=== PATIENT | female | born 2000 | race African-American/Black ===

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

== ENCOUNTER → 2023-06-23 | Outpatient (CLI) | payer MEDICAID, SELFPAY ==
--- OUTSIDE RECORDS SUMMARY | 2023-06-23 07:55 | XMS RPT_ITS | CCD ---
Author Name Unknown Address [address] [place] [address] Organization [facility] Care Team Providers Care Associate Director Of Biostatistics Name Role Phone LAMAR AYERS Unavailable Unavailable VLADIMIR HUMPHREY Unavailable Unavailable Vladimir Humphrey MD Primary Care Provider Vladimir Humphrey MD Primary Care Provider [phone] Vladimir Humphrey MD Primary Care Provider Vladimir Humphrey MD Primary Care Provider VLADIMIR HMUPHREY Primary Care Unavailable NALLELY CASTILLO Attending Unavailable VLADIMIR HUMPHREY Primary Care Unavailable NALLELY CASTILLO Attending Unavailable VLADIMIR HUMPHREY Primary Care Unavailable VERONICA MILAN Attending Unavailable VLADIMIR HUMPHREY Primary Care Unavailable VERONICA MILAN Attending Unavailable VLADIMIR HUMPHREY Primary Care Unavailable VLADIMIR HUMPHREY Attending Unavailable VLADIMIR HUMPHREY Primary Care Unavailable ONESIMO SAUNDERS Attending Unavailab VLADIMIR Lopez Primary Care Unavailable VLADIMIR HUMPHREY Primary Care Unavailable ONESIMO SAUNDERS Attending UnavailVLADIMIR aSnchez Primary Care Unavailable NALLELY CASTILLO Attending Unavailable Allergies Allergy Classification Reported Allergen(s) Allergy Type Date of Onset Reaction(s) Facility (20 sources) Banana Extract; Translations: [BANANA] Drug Allergy [address] [facility] Work Phone: (20 sources) celery allergenic extract; Translations: [CELERY] Drug Allergy [address] [facility] Work Phone: (20 sources) Grass pollen; Translations: [GRASS POLLEN] Drug Allergy [address] [facility] Work Phone: (20 sources) Seasonal allergy; Translations: [SEASONAL ALLERGIES] Allergy to substance [address] [facility] Work Phone: (20 sources) Tree and shrub pollen; Translations: [TREE AND SHRUB POLLEN] Drug Allergy [address] [facility] Work Phone: (20 sources) Kiwi; Translations: [KIWI] Drug Intolerance 9 Other: See Comments [facility] Work Phone: (14 sources) Latex; Translations: [LATEX] Drug Allergy 3 Other: See Comments [facility] (9 sources) Sertraline; Translations: [SERTRALINE] Drug Allergy 3 Other: See Comments [facility] Work Phone: Medications Current Medications Medication Drug Class(es) Dates Sig (Normalized) Sig (Original) etonogestrel 68 mg drug implant (20 sources) Progestin Start: 04-19-2021 End: 04-18-2024 etonogestrel (NEXPLANON) subdermal implant 68 mg Indications: Encounter for removal and reinsertion of Nexplanon 1 Each by SUBDERMAL route as directed. 1 Each 0 04/19/2021 04/18/2024 Active Completed/Discontinued Medications Medication Drug Class(es) Dates Sig (Normalized) Sig (Original) azelastine hydrochloride 0.137 mg/actuat metered dose nasal spray (1 source) Histamine-1 Receptor Antagonist Start: 04-20-2020 End: 08-09-2021 take 2 spray(s) nasal route twice daily as needed azelastine (ASTELIN) 0.1% nasal spray Use 2 Sprays in each nostril twice daily as needed. 1 Bottle 11 04/20/2020 08/09/2021 Discontinued Problems Active Problems Problem Classification Problem Date Documented Date Episodic/Chronic Administrative/social admission (1 source) Homeless; Translations: [Homelessness] 01-02-2023 Episodic Anxiety disorders (20 sources) Generalized anxiety disorder; Translations: [Generalized anxiety disorder] Onset: 09-15-2018 Chronic Digestive congenital anomalies (2 sources) Tongue tie; Translations: [Ankyloglossia] Chronic Immunizations and screening for infectious disease (6 sources) Viral screening status; Translations: [Encounter for screening for other viral diseases] Episodic Inflammatory diseases of female pelvic organs (2 sources) Vaginitis; Translations: [Acute vaginitis] Episodic Malaise and fatigue (2 sources) Fatigue; Translations: [Other fatigue] Episodic Mood disorders (20 sources) Mild major depression, single episode; Translations: [Major depressive disorder, single episode, mild] Onset: 09-15-2018 Chronic Mycoses (1 source) Tinea pedis; Translations: [Tinea pedis] 01-23-2023 Episodic Other connective tissue disease (1 source) H/O: arthritis; Translations: [Personal history of other diseases of the musculoskeletal system and connective tissue] Episodic Other connective tissue disease (1 source) Pain in left lower limb; Translations: [Pain in left leg] Episodic Other female genital disorders (1 source) Pruritus of vagina; Translations: [Other specified noninflammatory disorders of vagina] Episodic Other inflammatory condition of skin (1 source) Pruritus of genital organs; Translations: [Pruritus vulvae] Episodic Other liver diseases (2 sources) Alkaline phosphatase raised; Translations: [Abnormal levels of other serum enzymes] Episodic Other non-traumatic joint disorders (1 source) Pain in right knee; Translations: [Pain in joint, lower leg] Episodic Other nutritional; endocrine; and metabolic disorders (1 source) Weight gain; Translations: [Abnormal weight gain] Episodic Other screening for suspected conditions (not mental disorders or infectious disease) (2 sources) Patient encounter status; Translations: [Encounter for screening for lipoid disorders] Episodic Other skin disorders (1 source) Acne vulgaris; Translations: [Acne vulgaris] Episodic Other upper respiratory disease (20 sources) Seasonal allergy; Translations: [Other seasonal allergic rhinitis] Onset: 04-03-2016 Chronic Other upper respiratory disease (20 sources) Allergic rhinitis due to pollen; Translations: [Allergic rhinitis due to pollen] Onset: 03-18-2019 Chronic Other upper respiratory disease (20 sources) Allergic rhinitis due to house dust mite; Translations: [Other allergic rhinitis] Onset: 03-18-2019 Chronic Other upper respiratory infections (1 source) Sore throat symptom; Translations: [Acute pharyngitis, unspecified] Episodic Past or Other Problems Problem Classification Problem Date Documented Da te Episodic/Chronic Allergic reactions (20 sources) Pollen-food allergy; Translations: [Other adverse food reactions, not elsewhere classified, initial encounter] Onset: 03-18-2019 06-28-2020 Episodic Other connective tissue disease (1 source) Pain in left leg; Translations: [Pain of left lower extremity] Onset: 08-21-2022 Episodic Other skin disorders (1 source) Acne vulgaris; Translations: [Acne vulgaris] Onset: 09-16-2022 Episodic Skin and subcutaneous tissue infections (2 sources) Furuncle; Translations: [Furuncle, unspecified] Onset: 08-21-2022 Episodic Urinary tract infections (20 sources) Recurrent urinary tract infection; Translations: [Urinary tract infection, site not specified] Onset: 08-09-2021 Episodic Viral infection (20 sources) Disease caused by 2019-nCoV; Translations: [COVID-19] Onset: 05-27-2021 05-27-2021 Episodic Results Test Name Value Interpretation Reference Range Facil ity Vital Signs Date Time Vital Sign Value Performing Clinician Faci lity 03-12-2023 16:48-0400 Body height 160 cm Onesimo Saunders MD Work Phone: [facility] 03-12-2023 16:48-0400 Body weight 83.46 kg Onesimo Saunders MD Work Phone: [facility] 03-12-2023 16:48-0400 Diastolic blood pressure 80 mm[Hg] Onesimo Saunders MD Work Phone: [facility] 03-12-2023 16:48-0400 Heart rate 80 /min Onesimo Saunders MD Work Phone: [facility] 03-12-2023 16:48-0400 Respiratory rate 16 /min Onesimo Saunders MD Work Phone: [facility] 03-12-2023 16:48-0400 Systolic blood pressure 120 mm[Hg] Onesimo Saunders MD Work Phone: [facility] 01-23-2023 16:40-0400 Body temperature 98.49 [degF] Afia Wiseman PA-C Work Phone: [facility] 01-23-2023 16:40-0400 Body weight 83.64 kg Afia Athy PA-C Work Phone: [facility] 01-23-2023 16:40-0400 Diastolic blood pressure 78 mm[Hg] Afia Athy PA-C Work Phone: [facility] 01-23-2023 16:40-0400 Heart rate 80 /min Afia Athy PA-C Work Phone: [facility] 01-23-2023 16:40-0400 Respiratory rate 20 /min Faia Athy PA-C Work Phone: [facility] 01-23-2023 16:40-0400 SaO2% (BldA) [Mass fraction] 100 % Afia Athy PA-C Work Phone: [facility] 01-23-2023 16:40-0400 Systolic blood pressure 100 mm[Hg] Afia Athy PA-C Work Phone: [facility] 01-02-2023 16:42-0400 Body weight 86.46 kg Onesimo Saunders MD Work Phone: [facility] 01-02-2023 16:42-0400 Diastolic blood pressure 68 mm[Hg] Onesimo Saunders MD Work Phone: [facility] 01-02-2023 16:42-0400 Heart rate 113 /min Onesimo Saunders MD Work Phone: [facility] 01-02-2023 16:42-0400 Respiratory rate 16 /min Onesimo Saunders MD Work Phone: [facility] 01-02-2023 16:42-0400 SaO2% (BldA) [Mass fraction] 96 % Onesimo Saunders MD Work Phone: [facility] 01-02-2023 16:42-0400 Systolic blood pressure 118 mm[Hg] Onesimo Saunders MD Work Phone: [facility] 09-16-2022 18:21-0400 Diastolic blood pressure 82 mm[Hg] Nallely Castillo APRN.CNP Work Phone: [facility] 09-16-2022 18:21-0400 Heart rate 89 /min Nallely Haagen CIRCUS SUPERVISOR.SUPERVISOR KNITTING Work Phone: [facility] 09-16-2022 18:21-0400 Respiratory rate 18 /min Nallely Haagen CIRCUS SUPERVISOR.SUPERVISOR [employer]ITTING Work Phone: [facility] 09-16-2022 18:21-0400 SaO2% (BldA) [Mass fraction] 99 % Nallely Haagen CIRCUS SUPERVISOR.SUPERVISOR [employer]ITTING Work Phone: [facility] 09-16-2022 18:21-0400 Systolic blood pressure 118 mm[Hg] Nallely Haagen CIRCUS SUPERVISOR.SUPERVISOR [employer]ITTING Work Phone: [facility] 08-21-2022 15:48-0400 Body height 161.3 cm Nallely Haagen CIRCUS SUPERVISOR.SUPERVISOR [employer]ITTING Work Phone: [facility] 08-21-2022 15:48-0400 Body weight 87.09 kg Nallely Haagen CIRCUS SUPERVISOR.SUPERVISOR [employer]ITTING Work Phone: [facility] 08-21-2022 15:48-0400 Diastolic blood pressure 82 mm[Hg] Nallely Haagen CIRCUS SUPERVISOR.SUPERVISOR [employer]ITTING Work Phone: [facility] 08-21-2022 15:48-0400 Heart rate 97 /min Nallely Haagen CIRCUS SUPERVISOR.SUPERVISOR [employer]ITTING Work Phone: [facility] 08-21-2022 15:48-0400 Respiratory rate 18 /min Nallely Haagen CIRCUS SUPERVISOR.SUPERVISOR [employer]ITTING Work Phone: [facility] 08-21-2022 15:48-0400 SaO2% (BldA) [Mass fraction] 97 % Nallely Haagen CIRCUS SUPERVISOR.SUPERVISOR KNITTING Work Phone: [facility] 08-21-2022 15:48-0400 Systolic blood pressure 104 mm[Hg] Nallely Haagen CIRCUS SUPERVISOR.SUPERVISOR [employer]ITTING Work Phone: [facility] 06-24-2022 17:23-0500 Diastolic blood pressure 82 mm[Hg] Nallely Haagen CIRCUS SUPERVISOR.SUPERVISOR [employer]NITTING Work Phone: [facility] 06-24-2022 17:23-0500 Heart rate 109 /min Nallely Castillo CIRCUS SUPERVISOR.SUPERVISOR [employer]ITTING Work Phone: [facility] 06-24-2022 17:23-0500 Respiratory rate 18 /min Nallely Castillo APRN.SUPERVISOR [employer]ITTING Work Phone: [facility] 06-24-2022 17:23-0500 SaO2% (BldA) [Mass fraction] 98 % Nallely Csatillo CIRCUS SUPERVISOR.SUPERVISOR [employer]ITTING Work Phone: [facility] 06-24-2022 17:23-0500 Systolic blood pressure 122 mm[Hg] Nallely Castillo CIRCUS SUPERVISOR.SUPERVISOR [employer]NITTING Work Phone: [facility] 06-06-2022 16:00-0500 Body height 161.3 cm Veronica Milan APRN.SUPERVISOR [employer]ITTING Work Phone: [facility] 06-06-2022 16:00-0500 Body weight 86.82 kg Veronica Milan APRN.SUPERVISOR [employer]ITTING Work Phone: [facility] 06-06-2022 16:00-0500 Diastolic blood pressure 72 mm[Hg] Veronica Milan APRN.SUPERVISOR [employer]ITTING Work Phone: [facility] 06-06-2022 16:00-0500 Systolic blood pressure 122 mm[Hg] Veronica Milan APRN.SUPERVISOR [employer]NITTING Work Phone: [facility] 06-05-2022 15:06-0500 Body weight 87.54 kg Veronica Milan APRN.SUPERVISOR [employer]ITTING Work Phone: [facility] 06-05-2022 15:06-0500 Diastolic blood pressure 74 mm[Hg] Veronica Milan APRN.SUPERVISOR [employer]ITTING Work Phone: [facility] 06-05-2022 15:06-0500 Systolic blood pressure 118 mm[Hg] Veronica Milan APRN.SUPERVISOR [employer]ITTING Work Phone: [facility] 03-12-2022 15:12-0400 Body weight 89.36 kg Nallely Castillo APRN.SUPERVISOR [employer]ITTING Work Phone: [facility] 03-12-2022 15:12-0400 Diastolic blood pressure 76 mm[Hg] Nallely Haagen CIRCUS SUPERVISOR.SUPERVISOR [employer]NITTING Work Phone: [facility] 03-12-2022 15:12-0400 Heart rate 92 /min Nallely Haagen CIRCUS SUPERVISOR.SUPERVISOR [employer]ITTING Work Phone: [facility] 03-12-2022 15:12-0400 Respiratory rate 16 /min Nallely Haagen CIRCUS SUPERVISOR.SUPERVISOR [employer]NITTING Work Phone: [facility] 03-12-2022 15:12-0400 Systolic blood pressure 118 mm[Hg] Nallely Haagen CIRCUS SUPERVISOR.SUPERVISOR KNITTING Work Phone: [facility] 11-08-2021 12:38-0400 Body mass index (BMI) [Percentile] Per age and sex 97.63 % Gunjan Praisler-Wood CIRCUS SUPERVISOR.SUPERVISOR KNITTING Work Phone: [facility] 11-08-2021 12:38-0400 Body temperature 98.01 [degF] Gunjan Praisler-Wood CIRCUS SUPERVISOR.SUPERVISOR [employer]NITTING Work Phone: [facility] 11-08-2021 12:38-0400 Body weight 89.54 kg Gunjan Praisler-Wood CIRCUS SUPERVISOR.SUPERVISOR [employer]NITTING Work Phone: [facility] 11-08-2021 12:38-0400 Diastolic blood pressure 64 mm[Hg] Gunjan Praisler-Wood CIRCUS SUPERVISOR.SUPERVISOR KNITTING Work Phone: [facility] 11-08-2021 12:38-0400 Heart rate 101 /min Gunjan Praisler-Wood CIRCUS SUPERVISOR.SUPERVISOR KNITTING Work Phone: [facility] 11-08-2021 12:38-0400 Respiratory rate 16 /min Gunjan Praisler-Wood CIRCUS SUPERVISOR.SUPERVISOR [employer]ITTING Work Phone: [facility] 11-08-2021 12:38-0400 SaO2% (BldA) [Mass fraction] 98 % Gunjan Praisler-Wood CIRCUS SUPERVISOR.SUPERVISOR KNITTING Work Phone: [facility] 11-08-2021 12:38-0400 Systolic blood pressure 122 mm[Hg] Gunjan Praisler-Wood CIRCUS SUPERVISOR.SUPERVISOR KNITTING Work Phone: [facility] 09-12-2021 12:56-0400 Body mass index (BMI) [Percentile] Per age and sex 97.78 % Veronica Milan APRN.SUPERVISOR KNITTING Work Phone: [facility] 09-12-2021 12:56-0400 Body weight 90.27 kg Veronica Milan APRN.SUPERVISOR KNITTING Work Phone: [facility] 09-12-2021 12:56-0400 Diastolic blood pressure 64 mm[Hg] Veronica Milan APRN.SUPERVISOR KNITTING Work Phone: [facility] 09-12-2021 12:56-0400 Systolic blood pressure 110 mm[Hg] Veronica Milan APRN.SUPERVISOR KNITTING Work Phone: [facility] 08-09-2021 12:12-0400 Body height 157.5 cm Nevaeh Hennessy PA-C Work Phone: [facility] 08-09-2021 12:12-0400 Body mass index (BMI) [Percentile] Per age and sex 97.76 % Nevaeh Hennessy PA-C Work Phone: [facility] 08-09-2021 12:12-0400 Body temperature 97.9 [degF] Nevaeh Hennessy PA-C Work Phone: [facility] 08-09-2021 12:12-0400 Body weight 89.81 kg Nevaeh Hennessy PA-C Work Phone: [facility] 08-09-2021 12:12-0400 Diastolic blood pressure 72 mm[Hg] Nevaeh Hennessy PA-C Work Phone: [facility] 08-09-2021 12:12-0400 Heart rate 96 /min Nevaeh Hennessy PA-C Work Phone: [facility] 08-09-2021 12:12-0400 Respiratory rate 18 /min Nevaeh Hennessy PA-C Work Phone: [facility] 03-24-2022 12:12-0400 Systolic blood pressure 106 mm[Hg] Nevaeh Hennessy PA-C Work Phone: [facility] Encounters Encounter Date Encounter Type Care Provider Facility Start: 06-19-2023 Refill Nallely Castillo APRN.SUPERVISOR KNITTING Work Phone: [facility] Procedures Date Procedure Procedure Detail Performing Clinician Start: 08-21-2022 Urnls dip stick/tabl et rgnt auto w/o microscopy Nallely Castillo CIRCUS SUPERVISOR.SUPERVISOR KNITTING Work Phone: Start: 06-05-2022 Iadna trichomonas vaginalis amplified probe tech Veronica Milan CIRCUS SUPERVISOR.SUPERVISOR KNITTING Work Phone: Start: 03-12-2022 INFLUENZA VACCINE QUADRIVALENT 6 MO - 64 YRS IM Nallely Castillo CIRCUS SUPERVISOR.SUPERVISOR KNITTING Work Phone: Plan of Treatment Date Care Activity Detail Author Start: 12-12-2024 Urine microalbumin profile [facility] Start: 03-12-2024 Covid-19 Vaccine ( season) Covid-19 Vaccine ( season) [facility] Immunizations Immunization Date Immunization Notes Care Provider Fa rom 03-12-2022 influenza, injectabl e, quadrivalent, contains preservative Nallely Castillo APRN.SUPERVISOR [employer]ITTING Work Phone: [facility] 03-12-2022 influenza virus vaccine, unspecified formulation Onesimo Saunders MD Work Phone: [facility] 02-24-2022 COVID-19 booster vaccine, age 12+ yr, bivalent (PFIZER-BIONTECH) Nallely Castillo APRN.SUPERVISOR KNITTING Work Phone: [facility] 04-20-2020 influenza, injectabl e, quadrivalent, contains preservative Nevaeh Hennessy PA-C Work Phone: [facility] 01-12-2020 meningococcal polysaccharide (groups A, C, Y and W-135) diphtheria toxoid conjugate vaccine (MCV4P) Nevaeh Hennessy PA-C Work Phone: [facility] 02-18-2019 influenza, injectabl e, quadrivalent, contains preservative Nevaeh Hennessy PA-C Work Phone: [facility] 07-02-2018 meningococcal polysaccharide (groups A, C, Y and W-135) diphtheria toxoid conjugate vaccine (MCV4P) Nevaeh Hennessy PA-C Work Phone: [facility] Work Phone: 01-25-2016 hepatitis A vaccine, pediatric/adolescent dosage, 2 dose schedule Nevaeh Hennessy PA-C Work Phone: [facility] Work Phone: 01-25-2016 Human Papillomavirus 9-valent vaccine Nevaeh Hennessy PA-C Work Phone: [facility] Work Phone: 06-19-2015 hepatitis A vaccine, pediatric/adolescent dosage, 2 dose schedule Nevaeh Hennessy PA-C Work Phone: [facility] 06-19-2015 human papilloma viru s vaccine, quadrivalent Nevaeh Hennessy PA-C Work Phone: [facility] 03-20-2015 human papilloma viru s vaccine, bivalent Nevaeh Hennessy PA-C Work Phone: [facility] 03-20-2015 human papilloma viru s vaccine, quadrivalent Nevaeh Hennessy PA-C Work Phone: [facility] 12-12-2014 hepatitis A vaccine, pediatric/adolescent dosage, 2 dose schedule Nevaeh Hennessy PA-C Work Phone: [facility] 12-12-2014 human papilloma viru s vaccine, quadrivalent Nevaeh Hennessy PA-C Work Phone: [facility] 12-12-2014 meningococcal polysaccharide (groups A, C, Y and W-135) diphtheria toxoid conjugate vaccine (MCV4P) Nevaeh Hennessy PA-C Work Phone: [facility] 12-12-2014 Meningococcal, MCV4, unspecified conjugate formulation(groups A, C, Y and W-135) Nevaeh Hennessy PA-C Work Phone: [facility] 12-12-2014 tetanus toxoid, redu caitlin diphtheria toxoid, and acellular pertussis vaccine, adsorbed Nevaeh Hennessy PA-C Work Phone: [facility] 01-27-2008 diphtheria, tetanus toxoids and acellular pertussis vaccine, 5 pertussis antigens Nevaeh Hennessy PA-C Work Phone: [facility] 01-27-2008 diphtheria, tetanus toxoids and acellular pertussis vaccine, unspecified formulation Nevaeh Hennessy PA-C Work Phone: [facility] 01-27-2008 measles, mumps and rubella virus vaccine Nevaeh Hennessy PA-C Work Phone: [facility] 01-27-2008 poliovirus vaccine, inactivated Nevaehjohnson Hennessy PA-C Work Phone: [facility] 01-27-2008 varicella virus vaccine Shaila nne Gerhard PA-C Work Phone: [facility] 08-08-2004 pneumococcal Conjuga te, unspecified formulation Nevaehjohnson Hennessy PA-C Work Phone: [facility] 10-07-2003 diphtheria, tetanus toxoids and acellular pertussis vaccine, 5 pertussis antigens Nevaehjohnson Hennessy PA-C Work Phone: [facility] 10-07-2003 diphtheria, tetanus toxoids and acellular pertussis vaccine, unspecified formulation Nevaeh Hennessy PA-C Work Phone: [facility] 10-07-2003 haemophilus influenz ae type b vaccine, HbOC conjugate Nevaehkoffi Hennessy PA-C Work Phone: [facility] 07-20-2003 measles, mumps and rubella virus vaccine Nevaeh Gerhard PA-C Work Phone: [facility] 07-20-2003 varicella virus vaccine Shaila nne Hennessy PA-C Work Phone: [facility] 03-07-2003 diphtheria, tetanus toxoids and acellular pertussis vaccine, 5 pertussis antigens Nevaeh Hennessy PA-C Work Phone: [facility] 03-07-2003 diphtheria, tetanus toxoids and acellular pertussis vaccine, unspecified formulation Nevaeh Hennessy PA-C Work Phone: [facility] 03-07-2003 haemophilus influenz ae type b vaccine, conjugate unspecified formulation Nevaeh Hennessy PA-C Work Phone: [facility] 03-07-2003 haemophilus influenz ae type b vaccine, HbOC conjugate Nevaeh Hennessy PA-C Work Phone: [facility] 03-07-2003 pneumococcal conjuga te vaccine, 7 valent Nevaeh Hennessy PA-C Work Phone: [facility] 03-07-2003 pneumococcal Conjuga te, unspecified formulation Nevaeh Hennessy PA-C Work Phone: [facility] 03-07-2003 poliovirus vaccine, inactivated Nevaeh Hennessy PA-C Work Phone: [facility] 01-05-2003 diphtheria, tetanus toxoids and acellular pertussis vaccine, 5 pertussis antigens Nevaeh Hennessy PA-C Work Phone: [facility] 01-05-2003 diphtheria, tetanus toxoids and acellular pertussis vaccine, unspecified formulation Nevaeh Hennessy PA-C Work Phone: [facility] 01-05-2003 haemophilus influenz ae type b conjugate and Hepatitis B vaccine Nevaeh Hennessy PA-C Work Phone: [facility] 01-05-2003 haemophilus influenz ae type b vaccine, HbOC conjugate Nevaeh Hennessy PA-C Work Phone: [facility] 01-05-2003 hepatitis B vaccine, pediatric or pediatric/adolescent dosage Nevaeh Hennessy PA-C Work Phone: [facility] 01-05-2003 pneumococcal conjuga te vaccine, 7 valent Nevaeh Hennessy PA-C Work Phone: [facility] 01-05-2003 pneumococcal Conjuga te, unspecified formulation Nevaeh Hennessy PA-C Work Phone: [facility] 01-05-2003 poliovirus vaccine, inactivated Nevaeh Hennessy PA-C Work Phone: [facility] 2002 diphtheria, tetanus toxoids and acellular pertussis vaccine, 5 pertussis antigens Nevaeh Gerhard LEGER-C Work Phone: [facility] 2002 diphtheria, tetanus toxoids and acellular pertussis vaccine, unspecified formulation Nevaeh Hennessy PA-C Work Phone: [facility] 2002 haemophilus influenz ae type b conjugate and Hepatitis B vaccine Nevaeh Hennessy PA-C Work Phone: [facility] 2002 haemophilus influenz ae type b vaccine, HbOC conjugate Nevaeh Gerhard LEGER-C Work Phone: [facility] 2002 hepatitis B vaccine, pediatric or pediatric/adolescent dosage Nevaeh Gerhard LEGER-C Work Phone: [facility] 2002 pneumococcal conjuga te vaccine, 7 valent Nevaehjohnson LEGER-C Work Phone: [facility] 2002 pneumococcal Conjuga te, unspecified formulation Nevaehjohnson LEGER-C Work Phone: [facility] 2002 poliovirus vaccine, inactivated Nevaehjohnson LEGER-C Work Phone: [facility] 2002 hepatitis B immune globulin Nevaehjohnson LEGER-C Work Phone: [facility] 2002 hepatitis B vaccine, pediatric or pediatric/adolescent dosage Nevaeh Hennessy PA-C Work Phone: [facility] Payers Date Payer Category Payer Medicaid [employer] [id number] 2003-Present [phone] [place] [id number] Medicaid [id number] 2003 Medicaid [id number] 2003 Unknown [id number] Social History Date Type Detail Facility Start: 06-20-2017 End: 03-12-2022 Tobacco smoking status NHIS Never smoked tobacco [facility] Work Phone: Start: 08-09-2021 End: 06-02-2023 Alcohol intake Current non-drinker of alcohol (finding) [facility] Start: 2002 Sex Assigned At Female [facility] Start: 07-30-2021 End: 03-12-2022 Exposure to SARS-CoV-2 (event) Not sure [facility] [facility] Start: 06-20-2017 End: 03-12-2022 Tobacco use and exposure Smokeless tobacco non-user [facility] Start: 03-12-2022 End: 06-24-2022 History SDOH Alcohol Frequency [address] [facility] Start: 03-12-2022 End: 06-24-2022 History SDOH Alcohol Std Drinks [address] [facility] Start: 03-12-2022 End: 06-24-2022 History SDOH Social Connections Phone [address] [facility] Start: 03-12-2022 End: 06-24-2022 History SDOH Social Connections Get Together [address] [facility] Start: 03-12-2022 End: 06-24-2022 History SDOH Social Connections Living [address] [facility] Start: 03-12-2022 End: 06-24-2022 History SDOH Stress [address] [facility] Start: 03-12-2022 History SDOH Financial [address] [facility] Start: 03-12-2022 History SDOH Food Scarcity [address] [facility] Start: 06-24-2022 End: 04-21-2023 History of Social function [facility] Start: 06-24-2022 End: 04-21-2023 Social connection and isolation panel [facility] Do you belong to any clubs or organizations such as confucianist groups, unions, fraternal or athletic groups, or school groups? No [facility] Are you now , , , , never or living with a partner? Never [facility] How often to you hav e a drink containing alcohol? Never [facility] How many standard dr inks containing alcohol do you have on a typical day? Patient does not drink [facility] How hard is it for y ou to pay for the very basics like food, housing, medical care, and heating Hard [facility] Do you feel stress - tense, restless, nervous, or anxious, or unable to sleep at night because your mind is troubled all the time - these days [OSQ] Rather much [facility] (I/We) worried wheth er (my/our) food would run out before (I/we) got money to buy more. Sometimes true [facility] In the past 12 month s, was there a time when you were not able to pay the mortgage or rent on time? Yes [facility] Start: 08-09-2021 Gender identity Identifies as female gender (finding) [facility] Start: 08-09-2021 Sexual orientation Bisexual (finding ) [facility] Clinical Notes 08-09-2021 to 06-19-2023 Telephone Encounter - Gail Durham LPN - 06/19/2023 2:32 PM ESTTelephone Encounter - Vladimir Humphrey MD - 06/19/2023 2:17 PM Onesimo Iraheta MD - 03/12/2023 4:54 PM EDT Note Date & Type Note Facility 06-19-2023 Miscellaneous Notes Pt notified of same. Pt will come into [facility] to be seen. Gail Durham LPN Advise patient she will need seen. Patient has been identified by name and date of : Yes, Patient phones for refill(s): Requested Prescriptions Pending Prescriptions Disp Refills cephALEXin (KEFLEX) 250 mg capsule Sig: Take 1 capsule by mouth as needed. After intercourse Date of last office visit in primary care: 06/02/2023 Date of next office visit in primary care: 07/17/2023 Please advise. Thank you. Tomasa Denis LPN. documented in this encounter [facility] 06-02-2023 Note HNO ID: [id number] Author: VLADIMIR HUMPHREY MD Service: ? Author Type: Physician Type: Progress Notes Filed: 06/02/2023 16:47 Note Text: Chief Complaint Patient presents with: Medication Follow-up HPI Mary Verduzco is a 22 year old female who presents here today for medication follow up. Patient was started on Prozac. Patient indicated that she didn't noticed much different. She says she did notice more benefit than with the Zoloft. Patient has not been on the medication for over month because she had not refills and couldn't get a refill until she was seen. Patient did have a fall 2 days ago. She was walking her dog and the dog saw a cat and ran after; she fell back and hit her head on concrete. She did have her jacket molina on the cushion the fall. Patient didn't pass out ; but the spot on the back of her head is tender to touch. Headache off/on and no changes in her vision. No nausea or vomiting. No mood changes or confusion. No headache today. Office visit - Dr. Saunders - Past Evaluated at last OV for uncontrolled anxiety and depression. Patient switched from Zoloft to Prozac due to fatigue at OV in December. States that she just started the Prozac 1 week ago and has continued on the Zoloft 100 mg daily. Tolerating without side effects. Interested in seeing counseling. Referred at last OV and behavioral health sent resources via [facility]. Feels like her anxiety and depression symptoms have improved since she has found a duplex here in [place] and is no longer worried about being homeless. Living with her mother. Previous PHQ-9: 23 CAMRON 7: 18. Patient completed questionnaires prior to OV with PHQ-9: 13 and CAMRON 7: 11. 03/05/2023 1542 Last Filed Value CAMRON-7 - over the last 2 weeks... Feeling nervous, anxious, or on edge More than half the daysFeeling nervous, anxious, or on edge. More than half the days. Patient-Reported. Taken on 03/05/23 1542 More than half the daysFeeling nervous, anxious, or on edge. More than half the days. Patient-Reported. Last Filed Value Not being able to stop or control worrying Not at allNot being able to stop or control worrying. Not at all. Patient-Reported. Taken on 03/05/23 154 Not at allNot being able to stop or control worrying. Not at all. Patient-Reported. Last Filed Value Worrying too much about different things Nearly EverydayWorrying too much about different things. Nearly Everyday. Patient-Reported. Taken on 03/05/23 154 Nearly EverydayWorrying too much about different things. Nearly Everyday. Patient-Reported. Last Filed Value Trouble relaxing Nearly EverydayTrouble relaxing. Nearly Everyday. Patient-Reported. Taken on 03/05/23 154 Nearly EverydayTrouble relaxing. Nearly Everyday. Patient-Reported. Last Filed Value Being so restless that it is hard to sit still Several daysBeing so restless that it is hard to sit still. Several days. Patient-Reported. Taken on 03/05/23 154 Several daysBeing so restless that it is hard to sit still. Several days. Patient-Reported. Last Filed Value Becoming easily annoyed or irritable Several daysBecoming easily annoyed or irritable. Several days. Patient-Reported. Taken on 03/05/23 154 Several daysBecoming easily annoyed or irritable. Several days. Patient-Reported. Last Filed Value Feeling afraid, as if something awful might happen Several daysFeeling afraid, as if something awful might happen. Several days. Patient-Reported. Taken on 03/05/23 1542 Several daysFeeling afraid, as if something awful might happen. Several days. Patient-Reported. Last Filed Value How difficult to do work, care for home, get along with people Somewhat difficultHow difficult to do work, care for home, get along with people. Somewhat difficult. Patient-Reported. Taken on 03/05/23 154 Somewhat difficultHow difficult to do work, care for home, get along with people. Somewhat difficult. Patient-Reported. Last Filed Value CAMRON-2 Total Score 2 2 CAMRON-7 Total Score 11 11 CAMRON-7 Score 11 11 medical history, appointments, medications, allergies reviewed. Previous Medical History PAST MEDICAL HISTORY Diagnosis Date Allergic rhinitis due to dust mite 03/18/2019 Bilateral bunions 11/01/2016 S/p bunionectomy [place] COVID-19 virus infection 05/27/202105/2021 Depression, major, single episode, mild (HCC) 09/15/2018 CAMRON (generalized anxiety disorder) 09/15/2018 Nexplanon insertion 04/19/2021 Pollen-food allergy 03/18/2019 Seasonal allergic rhinitis due to pollen 03/18/2019 Seasonal allergies Previous Surgical History PAST SURGICAL HISTORY Procedure Laterality Date CORRECTION OF BUNION Bilateral 11/02 left foot 05/04 right foot Family History FAMILY HISTORY Problem Relation Age of Onset Diabetes Mother Kidney Disease Mother Arthritis Mother Neuropathy Mother No Known Problems Father None Other Prostate Cancer No Family History Colon Cancer No Family History Keena (more content not included)... [facility] 03-12-2023 Note HNO ID: [id number] Author: Onesimo Saunders MD Service: ? Author Type: Physician Type: Progress Notes Filed: 03/13/2023 10:59 AM Note Text: Chief Complaint Patient presents with: Follow up from starting Prozac HPI Mary Verduzco is a 22 year old female who presents here today for Above Complaints.. Evaluated at last OV for uncontrolled anxiety and depression. Patient switched from Zoloft to Prozac due to fatigue at OV in December. States that she just started the Prozac 1 week ago and has continued on the Zoloft 100 mg daily. Tolerating without side effects. Interested in seeing counseling. Referred at last OV and behavioral health sent resources via [employer]. Feels like her anxiety and depression symptoms have improved since she has found a duplex here in [place] and is no longer worried about being homeless. Living with her mother. Previous PHQ-9: 23 CAMRON 7: 18. Patient completed questionnaires prior to OV with PHQ-9: 13 and CAMRON 7: 11. 03/05/2023 1542 Last Filed Value CAMRON-7 - over the last 2 weeks... Feeling nervous, anxious, or on edge More than half the daysFeeling nervous, anxious, or on edge. More than half the days. Patient-Reported. Taken on 03/05/23 1542 More than half the daysFeeling nervous, anxious, or on edge. More than half the days. Patient-Reported. Last Filed Value Not being able to stop or control worrying Not at allNot being able to stop or control worrying. Not at all. Patient-Reported. Taken on 03/05/23 1542 Not at allNot being able to stop or control worrying. Not at all. Patient-Reported. Last Filed Value Worrying too much about different things Nearly EverydayWorrying too much about different things. Nearly Everyday. Patient-Reported. Taken on 03/05/231541 Nearly EverydayWorrying too much about different things. Nearly Everyday. Patient-Reported. Last Filed Value Trouble relaxing Nearly EverydayTrouble relaxing. Nearly Everyday. Patient-Reported. Taken on 03/05/231541 Nearly EverydayTrouble relaxing. Nearly Everyday. Patient-Reported. Last Filed Value Being so restless that it is hard to sit still Several daysBeing so restless that it is hard to sit still. Several days. Patient-Reported. Taken on 03/05/231541 Several daysBeing so restless that it is hard to sit still. Several days. Patient-Reported. Last Filed Value Becoming easily annoyed or irritable Several daysBecoming easily annoyed or irritable. Several days. Patient-Reported. Taken on 03/05/231541 Several daysBecoming easily annoyed or irritable. Several days. Patient-Reported. Last Filed Value Feeling afraid, as if something awful might happen Several daysFeeling afraid, as if something awful might happen. Several days. Patient-Reported. Taken on 03/05/231541 Several daysFeeling afraid, as if something awful might happen. Several days. Patient-Reported. Last Filed Value How difficult to do work, care for home, get along with people Somewhat difficultHow difficult to do work, care for home, get along with people. Somewhat difficult. Patient-Reported. Taken on 03/05/231541 Somewhat difficultHow difficult to do work, care for home, get along with people. Somewhat difficult. Patient-Reported. Last Filed Value CAMRON-2 Total Score 2 2 CAMRON-7 Total Score 11 11 CAMRON-7 Score 11 11 Past medical history, appointments, medications, allergies reviewed. Previous Medical History PAST MEDICAL HISTORY Diagnosis Date Allergic rhinitis due to dust mite 03/18/2019 Bilateral bunions 11/01/2016 S/p bunionectomy [place] COVID-19 virus infection 05/27/202105/2021 Depression, major, single episode, mild (HCC) 09/15/2018 CAMRON (generalized anxiety disorder) 09/15/2018 Nexplanon insertion 04/19/2021 Pollen-food allergy 03/18/2019 Seasonal allergic rhinitis due to pollen 03/18/2019 Seasonal allergies Previous Surgical History PAST SURGICAL HISTORY Procedure Laterality Date CORRECTION OF BUNION Bilateral 11/02 left foot 05/04 right foot Family History FAMILY HISTORY Problem Relation Age of Onset Diabetes Mother Kidney Disease Mother Arthritis Mother Neuropathy Mother No Known Problems Father None Other Prostate Cancer No Family History Colon Cancer No Family History Breast Cancer No Family History Ovarian cancer No Family History Coronary Artery Disease No Family History Hypertension No Family History Hyperlipidemia No Family History Seizures No Family History Stroke No Family History Thyroid No Family History Patient Allergies ALLERGIES Allergen Reactions Kiwi Other: See Comments Throat becomes itchy Latex Other: See Comments itching Zoloft [Sertraline] Other: See Comments Fatigue Banana Itching Pollen food allergy Celery Itching Pollen food allergy. Itching mouth Grass Pollen Unknown Seasonal Allergies Unknown DUST MITES, TREES, GRASSES, WEEDS AND RAGWEED VERIFIED BY SKIN TESTING Tree And Shrub Poll* Unknown Current (more content not included)... [facility] 03-12-2023 History of Present illness Narrative Chief Complaint Patient presents with: Follow up from starting Prozac HPI Mary Verduzco is a 22 year old female who presents here today for Above Complaints.. Evaluated at last OV for uncontrolled anxiety and depression. Patient switched from Zoloft to Prozac due to fatigue at OV in December. States that she just started the Prozac 1 week ago and has continued on the Zoloft 100 mg daily. Tolerating without side effects. Interested in seeing counseling. Referred at last OV and behavioral health sent resources via [facility]. Feels like her anxiety and depression symptoms have improved since she has found a duplex here in [place] and is no longer worried about being homeless. Living with her mother. Previous PHQ-9: 23 CAMRON 7: 18. Patient completed questionnaires prior to OV with PHQ-9: 13 and CAMRON 7: 11. 03/05/2023 1542 Last Filed Value CAMRON-7 - over the last 2 weeks... Feeling nervous, anxious, or on edge More than half the daysFeeling nervous, anxious, or on edge. More than half the days. Patient-Reported. Taken on 03/05/23 1542 More than half the daysFeeling nervous, anxious, or on edge. More than half the days. Patient-Reported. Last Filed Value Not being able to stop or control worrying Not at allNot being able to stop or control worrying. Not at all. Patient-Reported. Taken on 03/05/231541 Not at allNot being able to stop or control worrying. Not at all. Patient-Reported. Last Filed Value Worrying too much about different things Nearly EverydayWorrying too much about different things. Nearly Everyday. Patient-Reported. Taken on 03/05/231541 Nearly EverydayWorrying too much about different things. Nearly Everyday. Patient-Reported. Last Filed Value Trouble relaxing Nearly EverydayTrouble relaxing. Nearly Everyday. Patient-Reported. Taken on 03/05/231541 Nearly EverydayTrouble relaxing. Nearly Everyday. Patient-Reported. Last Filed Value Being so restless that it is hard to sit still Several daysBeing so restless that it is hard to sit still. Several days. Patient-Reported. Taken on 03/05/231541 Several daysBeing so restless that it is hard to sit still. Several days. Patient-Reported. Last Filed Value Becoming easily annoyed or irritable Several daysBecoming easily annoyed or irritable. Several days. Patient-Reported. Taken on 03/05/231541 Several daysBecoming easily annoyed or irritable. Several days. Patient-Reported. Last Filed Value Feeling afraid, as if something awful might happen Several daysFeeling afraid, as if something awful might happen. Several days. Patient-Reported. Taken on 03/05/231541 Several daysFeeling afraid, as if something awful might happen. Several days. Patient-Reported. Last Filed Value How difficult to do work, care for home, get along with people Somewhat difficultHow difficult to do work, care for home, get along with people. Somewhat difficult. Patient-Reported. Taken on 03/05/231541 Somewhat difficultHow difficult to do work, care for home, get along with people. Somewhat difficult. Patient-Reported. Last Filed Value CAMRON-2 Total Score 2 2 CAMRON-7 Total Score 11 11 CAMRON-7 Score 11 11 Past medical history, appointments, medications, allergies reviewed. Previous Medical History PAST MEDICAL HISTORY Diagnosis Date Allergic rhinitis due to dust mite 03/18/2019 Bilateral bunions 11/01/2016 S/p bunionectomy [place] COVID-19 virus infection 05/27/202105/2021 Depression, major, single episode, mild (HCC) 09/15/2018 CAMRON (generalized anxiety disorder) 09/15/2018 Nexplanon insertion 04/19/2021 Pollen-food allergy 03/18/2019 Seasonal allergic rhinitis due to pollen 03/18/2019 Seasonal allergies Previous Surgical History PAST SURGICAL HISTORY Procedure Laterality Date CORRECTION OF BUNION Bilateral 11/02 left foot 05/04 right foot Family History FAMILY HISTORY Problem Relation Age of Onset Diabetes Mother Kidney Disease Mother Arthritis Mother Neuropathy Mother No Known Problems Father None Other Prostate Cancer No Family History Colon Cancer No Family History Breast Cancer No Family History Ovarian cancer No Family History Coronary Artery Disease No Family History Hypertension No Family History Hyperlipidemia No Family History Seizures No Family History Stroke No Family History Thyroid No Family History Patient Allergies ALLERGIES Allergen Reactions Kiwi Other: See Comments Throat becomes itchy Latex Other: See Comments itching Zoloft [Sertraline] Other: See Comments Fatigue Banana Itching Pollen food allergy Celery Itching Pollen food allergy. Itching mouth Grass Pollen Unknown Seasonal Allergies Unknown DUST MITES, TREES, GRASSES, WEEDS AND RAGWEED VERIFIED BY SKIN TESTING Tree And Shrub Poll* Unknown Current Medications Current Outpatient Medications on File Prior to Visit Medication Sig FLUoxetine (PROZAC) 20 mg capsule Take 1 capsule by mouth once daily for 14 days, THEN 2 capsules once daily. [facility] Blue-Sod Dtln-UfClv-Rla (URIBEL) 118-10-40.8-36 mg Take 1 capsule by mouth as needed. ibuprofen (MOTRIN) 800 mg tablet Take 1 tablet by mouth every 8 hours as needed for pain. Take with food. fexofenadine (CLAU) 180 mg tablet Take 1 tablet by mouth once daily. tretinoin (RETIN-A) 0.025 % topical cream Apply to affected area daily at bedtime. docusate sodium (COLACE) 100 mg capsule Take 100 mg by mouth three times daily. montelukast (SINGULAIR) 10 mg tablet Take 1 tablet by mouth daily at bedtime. cephALEXin (KEFLEX) 250 mg capsule Take 1 capsule by mouth as needed. After intercourse phenazopyridine (PYRIDIUM) 200 mg tablet Take 1 tablet by mouth as needed. clindamycin (CLEOCIN-T) 1 % gel Apply to affected area twice daily. fluticasone (FLONASE) 50 mcg/actuation nasal spray Use 2 Sprays in each nostril once daily. clotrimazole-betamethasone (LOTRISONE) cream Apply 1 application to affected area twice daily. etonogestrel (NEXPLANON) subdermal implant 68 mg 1 Each by SUBDERMAL route as directed. etonogestrel (NEXPLANON) subdermal implant 68 mg 68 mg by SUBDERMAL route. No current facility-administered medications on file prior to visit. Social History Social History Tobacco Use Smoking status: Never Smokeless tobacco: Never Vaping Use Vaping Use: Never used Substance Use Topics Alcohol use: No Drug use: No Review of Symptoms REVIEW OF SYSTEMS See HPI EXAM: BP 120/80 Pulse 80 Resp 16 Ht 160 cm (5' 3 ) Wt 83.5 kg (184 lb) LMP 04/04/2022 (Exact Date) BMI 32.59 kg/m General Appearance: Well appearing, alert, in no acute distress, well-hydrated, well nourished.. PSYCH: Posture and motor behavior: normal posture and motor behavior Dress, grooming, personal hygiene: normal dress and grooming Facial expression: smiling Speech: normal speech Mood: cheerful Coherency and relevance of thought: normal thought processes Memory: normal memory Health Maintenance List Influenza Vaccine(1) due on 01/17/2023 Covid-19 Vaccine(4 2022-24 season) due on 01/17/2023 GC (Gonorrhea) Screening (18-24) due on 06/05/2023 Chlamydia Screening (18-24) due on 06/05/2023 DTaP,Tdap,Td Vaccine(7 - Td or Tdap) due on 12/12/2024 Hepatitis B Vaccine Completed HPV Vaccine Completed Hepatitis C Screening Completed HIV Screening Completed Meningococcal B Vaccine: Consider Based On Risk Discontinued ASSESSMENT/PLAN: 1. Anxiety with depression - ICD9: 300.4, ICD10: F41.8 Improved with change in living situation. Continue taking Prozac as prescribed. F/u with counseling. Recheck in 3 months or PRN. Onesimo Saunders MD documented in this encounter [facility] 01-23-2023 Note HNO ID: [id number] Author: Afia Wiseman PA-C Service: ? Author Type: Physician Flat Screen Worker Type: Progress Notes Filed: 01/23/2023 5:41 PM Note Text: This note was created using [employer]. Subjective Mary Verduzco is a 22 year old female. HPI Presents with a chief complaint of possible athlete's foot. She states she has itching and rash between several of her toes over the past 4 days. She tried some Monistat [id number] but that did not seem to help. She states she was moving and had her close packed away and had worn socks over again and thinks maybe that is where she got it from. She had tried hydrocortisone cream as well. No other rash anywhere. Review of Systems Skin: Rash between toes All other systems reviewed and are negative. PAST MEDICAL HISTORY Diagnosis Date Allergic rhinitis due to dust mite 03/18/2019 Bilateral bunions 11/01/2016 S/p bunionectomy [place] COVID-19 virus infection 05/27/202105/2021 Depression, major, single episode, mild (HCC) 09/15/2018 CAM[facility] (generalized anxiety disorder) 09/15/2018 Nexplanon insertion 04/19/2021 Pollen-food allergy 03/18/2019 Seasonal allergic rhinitis due to pollen 03/18/2019 Seasonal allergies Current Outpatient Medications Medication Sig Dispense Refill [facility] Blue-Sod Qyik-NvSts-Jrv (URIBEL) 118-10-40.8-36 mg Take 1 capsule by mouth as needed. ibuprofen (MOTRIN) 800 mg tablet Take 1 tablet by mouth every 8 hours as needed for pain. Take with food. 60 tablet 1 fexofenadine (CLAU) 180 mg tablet Take 1 tablet by mouth once daily. 30 tablet 5 tretinoin (RETIN-A) 0.025 % topical cream Apply to affected area daily at bedtime. 45 g 1 docusate sodium (COLACE) 100 mg capsule Take 100 mg by mouth three times daily. montelukast (SINGULAIR) 10 mg tablet Take 1 tablet by mouth daily at bedtime. 30 tablet 11 cephALEXin (KEFLEX) 250 mg capsule Take 1 capsule by mouth as needed. After intercourse phenazopyridine (PYRIDIUM) 200 mg tablet Take 1 tablet by mouth as needed. clindamycin (CLEOCIN-T) 1 % gel Apply to affected area twice daily. 30 g 1 fluticasone (FLONASE) 50 mcg/actuation nasal spray Use 2 Sprays in each nostril once daily. 1 Each 11 clotrimazole-betamethasone (LOTRISONE) cream Apply 1 application to affected area twice daily. 15 g 2 etonogestrel (NEXPLANON) subdermal implant 68 mg 1 Each by SUBDERMAL route as directed. 1 Each 0 etonogestrel (NEXPLANON) subdermal implant 68 mg 68 mg by SUBDERMAL route. FLUoxetine (PROZAC) 20 mg capsule Take 1 capsule by mouth once daily for 14 days, THEN 2 capsules once daily. 74 capsule 0 terbinafine HCl (LAMISIL) 1 % cream Apply to affected area twice daily for 14 days. 30 g 0 No current facility-administered medications for this visit. PAST SURGICAL HISTORY Procedure Laterality Date CORRECTION OF BUNION Bilateral 11/02 left foot 05/04 right foot FAMILY HISTORY Problem Relation Age of Onset Diabetes Mother Kidney Disease Mother Arthritis Mother Neuropathy Mother No Known Problems Father None Other Prostate Cancer No Family History Colon Cancer No Family History Breast Cancer No Family History Ovarian cancer No Family History Coronary Artery Disease No Family History Hypertension No Family History Hyperlipidemia No Family History Seizures No Family History Stroke No Family History Thyroid No Family History Social History Tobacco Use Smoking status: Never Smokeless tobacco: Never Vaping Use Vaping Use: Never used Substance Use Topics Alcohol use: No Drug use: No Objective BP 100/78 Pulse 80 Temp 36.9 ?C (98.5 ?F) Resp 20 Wt 83.6 kg (184 lb 6.4 oz) LMP 04/04/2022 (Exact Date) SpO2 100% BMI 32.15 kg/m? Physical Exam Vitals reviewed. HENT: Head: Normocephalic and atraumatic. Feet: Comments: Patient has some cracking of the skin with minimal erythema between her toes of both feet. No sign of secondary cellulitis. Skin: General: Skin is warm and dry. Assessment and Plan ASSESSMENT/PLAN: 1. Tinea pedis, unspecified laterality - ICD9: 110.4, ICD10: B35.3 - Treat with Lamisil twice a day until rash resolves and then another week - Keep area of concern very dry. - Follow up with PCP if symptoms persist or do not improved after 4-6 weeks of treatment. Afia Wiseman PA-C [facility] 01-23-2023 History of Present illness Narrative This note was created using [employer]. Subjective Mary Verduzco is a 22 year old female. HPI Presents with a chief complaint of possible athlete's foot. She states she has itching and rash between several of her toes over the past 4 days. She tried some Monistat [id number]-[id number] but that did not seem to help. She states she was moving and had her close packed away and had worn socks over again and thinks maybe that is where she got it from. She had tried hydrocortisone cream as well. No other rash anywhere. Review of Systems Skin: Rash between toes All other systems reviewed and are negative. PAST MEDICAL HISTORY Diagnosis Date Allergic rhinitis due to dust mite 03/18/2019 Bilateral bunions 11/01/2016 S/p bunionectomy [place] COVID-19 virus infection 05/27/202105/2021 Depression, major, single episode, mild (HCC) 09/15/2018 CAMRON (generalized anxiety disorder) 09/15/2018 Nexplanon insertion 04/19/2021 Pollen-food allergy 03/18/2019 Seasonal allergic rhinitis due to pollen 03/18/2019 Seasonal allergies Current Outpatient Medications Medication Sig Dispense Refill [facility] Blue-Sod Jiny-AbPuu-Chm (URIBEL) 118-10-40.8-36 mg Take 1 capsule by mouth as needed. ibuprofen (MOTRIN) 800 mg tablet Take 1 tablet by mouth every 8 hours as needed for pain. Take with food. 60 tablet 1 fexofenadine (CLAU) 180 mg tablet Take 1 tablet by mouth once daily. 30 tablet 5 tretinoin (RETIN-A) 0.025 % topical cream Apply to affected area daily at bedtime. 45 g 1 docusate sodium (COLACE) 100 mg capsule Take 100 mg by mouth three times daily. montelukast (SINGULAIR) 10 mg tablet Take 1 tablet by mouth daily at bedtime. 30 tablet 11 cephALEXin (KEFLEX) 250 mg capsule Take 1 capsule by mouth as needed. After intercourse phenazopyridine (PYRIDIUM) 200 mg tablet Take 1 tablet by mouth as needed. clindamycin (CLEOCIN-T) 1 % gel Apply to affected area twice daily. 30 g 1 fluticasone (FLONASE) 50 mcg/actuation nasal spray Use 2 Sprays in each nostril once daily. 1 Each 11 clotrimazole-betamethasone (LOTRISONE) cream Apply 1 application to affected area twice daily. 15 g 2 etonogestrel (NEXPLANON) subdermal implant 68 mg 1 Each by SUBDERMAL route as directed. 1 Each 0 etonogestrel (NEXPLANON) subdermal implant 68 mg 68 mg by SUBDERMAL route. FLUoxetine (PROZAC) 20 mg capsule Take 1 capsule by mouth once daily for 14 days, THEN 2 capsules once daily. 74 capsule 0 terbinafine HCl (LAMISIL) 1 % cream Apply to affected area twice daily for 14 days. 30 g 0 No current facility-administered medications for this visit. PAST SURGICAL HISTORY Procedure Laterality Date CORRECTION OF BUNION Bilateral 11/02 left foot 05/04 right foot FAMILY HISTORY Problem Relation Age of Onset Diabetes Mother Kidney Disease Mother Arthritis Mother Neuropathy Mother No Known Problems Father None Other Prostate Cancer No Family History Colon Cancer No Family History Breast Cancer No Family History Ovarian cancer No Family History Coronary Artery Disease No Family History Hypertension No Family History Hyperlipidemia No Family History Seizures No Family History Stroke No Family History Thyroid No Family History Social History Tobacco Use Smoking status: Never Smokeless tobacco: Never Vaping Use Vaping Use: Never used Substance Use Topics Alcohol use: No Drug use: No Objective BP 100/78 Pulse 80 Temp 36.9 C (98.5 F) Resp 20 Wt 83.6 kg (184 lb 6.4 oz) LMP 04/04/2022 (Exact Date) SpO2 100% BMI 32.15 kg/m Physical Exam Vitals reviewed. HENT: Head: Normocephalic and atraumatic. Feet: Comments: Patient has some cracking of the skin with minimal erythema between her toes of both feet. No sign of secondary cellulitis. Skin: General: Skin is warm and dry. Assessment and Plan ASSESSMENT/PLAN: 1. Tinea pedis, unspecified laterality - ICD9: 110.4, ICD10: B35.3 - Treat with Lamisil twice a day until rash resolves and then another week - Keep area of concern very dry. - Follow up with PCP if symptoms persist or do not improved after 4-6 weeks of treatment. Afia Wiseman PA-C documented in this encounter [facility] 01-23-2023 Miscellaneous Notes Patient has been identified by name and date of : Yes Patient phones for refill(s): Requested Prescriptions Pending Prescriptions Disp Refills FLUoxetine (PROZAC) 20 mg capsule 74 capsule 0 Sig: Take 1 capsule by mouth once daily for 14 days, THEN 2 capsules once daily. Date of last office visit in primary care: 01/02/2023 Please advise. Thank you. Tomasa Denis LPN documented in this encounter [facility] 01-13-2023 Note HNO ID: [id number] Author: Jenna Blake LPCC Service: ? Author Type: Therapist Type: Progress Notes Filed: 01/13/2023 8:39 AM Note Text: Behavioral Health Social Work Progress Note Patient identified for [facility] from: PCP Reason for referral: [facility] Resources: Psychology - talk therapy [facility] encounter type: MyChart Message Attempts to Outreach: 3 attempts Referral made: Psychology - Internal, Psychology - External Psychology-Internal referral type: Therapy Psychology-External referral type: Therapy Reason for external referral: Patient choice, Wait times at [facility] too long Final Disposition: Resources given Patient Discharged?: Yes Patient reported that caregiver was able to meet their needs today?: N/A I just wanted to follow up with you to see if you had any questions on the list of resources I sent last week. Feel free to contact me if I can be of any further help! Sincerely- BASSAM Henry-S Behavioral Health Therapist [phone] BASSAM Henry January 13, 2023 [facility] 01-13-2023 History of Present illness Narrative Behavioral Health Social Work Progress Note Patient identified for [facility] from: PCP Reason for referral: Resources Behavioral Health Resources: Psychology - talk therapy [facility] encounter type: MyChart Message Attempts to Outreach: 3 attempts Referral made: Psychology - Internal, Psychology - External Psychology-Internal referral type: Therapy Psychology-External referral type: Therapy Reason for external referral: Patient choice, Wait times at [facility] too long Final Disposition: Resources given Patient Discharged?: Yes Patient reported that caregiver was able to meet their needs today?: N/A I just wanted to follow up with you to see if you had any questions on the list of resources I sent last week. Feel free to contact me if I can be of any further help! Sincerely- BASSAM Henry-S Behavioral Health Therapist [phone] BASSAM Henry January 13, 2023 documented in this encounter [facility] 01-06-2023 Miscellaneous Notes Sw spoke with patient in regards to housing assistance. Patient reports that they are on [employer] right now and are facing eviction. Patient notes that she will not be eligible for [employer] housing assistance for 5 years. Patient reports that she called [employer] and they are full. Patient reports that she and mom have pets so concerned about them. Discussed [employer] housing support services. provided [employer] housing support services number [phone]. Reviewed housing support services info ie. Case management, job assistance, deposit assistance. will also send patient My Chart message to patient so that she can reply back to this for further housing resource assistance. documented in this encounter [facility] 01-03-2023 Miscellaneous Notes Behavioral Health Social Work Progress Note Patient identified for [facility] from: PCP Reason for referral: Resources Behavioral Health Resources: Psychology - talk therapy [facility] encounter type: Telephone Encounter Attempts to Outreach: 1 attempt Referral made: Psychology - Internal, Psychology - External Psychology-Internal referral type: Therapy Psychology-External referral type: Therapy Patient Discharged?: No Patient reported that caregiver was able to meet their needs today?: N/A Phone call placed today that went to [employer]. Left my contact information and brief nature of call. Initial outreach also completed via [employer] sending list of in network providers with insurance. KEELEY Henry January 03, 2023 documented in this encounter [facility] 01-02-2023 Note HNO ID: [id number] Author: Onesimo Saunders MD Service: ? Author Type: Physician Type: Progress Notes Filed: 01/03/2023 6:19 AM Note Text: Chief Complaint Patient presents with: Follow Up: ADILENE form HPI Mary Verduzco is a 22 year old female who presents here today for Above Complaints.. Patient evaluated by Nallely Castillo on 06/24 for ADILENE form/letter for history of depression/anxiety with following HPI: Pt presents today to discuss trying to get her dogs for emotional support animals. Refers that she has had one for 7 years and one for 4 years. One is Jaradua and one is oneil/indy montgomery. Refers that she is moving and only allowed to take one. Refers they are house broke. No special training. Refers that they are up-to-date with vaccinations. Refers they have never bitten or been aggressive. Refers that she cannot bear to lose either dog. Refers the dogs are there for her when she needs them. Refers if she is depressed or anxious, they calm her down. Refers that she is happier with the dogs, mental health is better with them. Refers that having the dogs make her be able to better function and work outside of the home. She has librado under treatment at this office for depression/anxiety since 2019. A letter was drafted for her at that time, but she is here today with a form which they need completed instead. Patient states that all of the above information is still accurate and would benefit from both dogs as ADILENE. She continues to take Zoloft for anxiety/depression and feels like the medication is not working well enough to help with her anxiety symptoms. Symptoms worse for the last month after mother missed rent payment and is getting evicted. Does not have place to stay nailed down yet. Has contacted [facility] [employer] [facility], but they did not have room there. Considering living in car with dogs. Also notes that she has times where she wishes she was not alive, but does not have plan to harm herself at this time. Feels safe going home. History of suicide attempt by hanging in 5th grade. 01/02/20231721 Last Filed Value PHQ-9 Little interest or pleasure in doing things More than half the days More than half the days Feeling down, depressed, or hopeless Nearly every day Nearly every day Trouble falling or staying asleep, or sleeping too much Nearly every day Nearly every day Feeling tired or having little energy Nearly every day Nearly every day Poor appetite or overeating Nearly every day Nearly every day Feeling bad about yourself - or that you are a failure or have let yourself or your family down More than half the days More than half the days Trouble concentrating on things, such as reading the newspaper or watching television Nearly every day Nearly every day Moving or speaking so slowly that other people could have noticed. Or the opposite - being so fidgety or restless that you have been moving around a lot more than usual Nearly every day Nearly every day Thoughts that you would be better off , or of hurting yourself in some way Several days Several days If you checked off any problems, how difficult have these problems made it for you to do your work, take care of things at home, or get along with other people? Very difficult Very difficult PHQ-9 score 23 23 PHQ-9 Score 23 23 PHQ-2 score 5 5 PHQ-2 Score 5 5 01/02/2023 172 Last Filed Value CAMRON-7 - over the last 2 weeks... Feeling nervous, anxious, or on edge Nearly Everyday Nearly Everyday Not being able to stop or control worrying More than half the days More than half the days Worrying too much about different things Nearly Everyday Nearly Everyday Trouble relaxing More than half the days More than half the days Being so restless that it is hard to sit still More than half the days More than half the days Becoming easily annoyed or irritable Nearly Everyday Nearly Everyday Feeling afraid, as if something awful might happen Nearly Everyday Nearly Everyday How difficult to do work, care for home, get along with people Very difficult Very difficult CAMRON-2 Total Score 5 5 CAMRON-7 Total Score 18 18 CAMRON-7 Score 18 18 Would like referral to counseling. Past medical history, appointments, medications, allergies reviewed. Previous Medical History PAST MEDICAL HISTORY Diagnosis Date Allergic rhinitis due to dust mite 03/18/2019 Bilateral bunions 11/01/2016 S/p bunionectomy Brody COVID-19 virus infection 05/27/202105/2021 Depression, major, single episode, mild (HCC) 09/15/2018 CAMRON (generalized anxiety disorder) 09/15/2018 Nexplanon insertion 04/19/2021 Pollen-food allergy 03/18/2019 Seasonal allergic rhinitis due to pollen 03/18/2019 Seasonal allergies Previous Surgical History PAST SURGICAL HISTORY Procedure Laterality Date CORRECTION OF BUNION Bilateral 11/02 left foot 05/04 right foot Family History FAMILY HISTORY Problem Relation Age (more content not included)... [facility] 01-02-2023 History of Present illness Narrative Chief Complaint Patient presents with: Follow Up: ADILENE form HPI Mary Verduzco is a 22 year old female who presents here today for Above Complaints.. Patient evaluated by Nallely Castillo on 06/24 for ADILENE form/letter for history of depression/anxiety with following HPI: Pt presents today to discuss trying to get her dogs for emotional support animals. Refers that she has had one for 7 years and one for 4 years. One is Jaradua and one is oneil/indy montgomery. Refers that she is moving and only allowed to take one. Refers they are house broke. No special training. Refers that they are up-to-date with vaccinations. Refers they have never bitten or been aggressive. Refers that she cannot bear to lose either dog. Refers the dogs are there for her when she needs them. Refers if she is depressed or anxious, they calm her down. Refers that she is happier with the dogs, mental health is better with them. Refers that having the dogs make her be able to better function and work outside of the home. She has librado under treatment at this office for depression/anxiety since 2018. A letter was drafted for her at that time, but she is here today with a form which they need completed instead. Patient states that all of the above information is still accurate and would benefit from both dogs as ADILENE. She continues to take Zoloft for anxiety/depression and feels like the medication is not working well enough to help with her anxiety symptoms. Symptoms worse for the last month after mother missed rent payment and is getting evicted. Does not have place to stay nailed down yet. Has contacted [employer], but they did not have room there. Considering living in car with dogs. Also notes that she has times where she wishes she was not alive, but does not have plan to harm herself at this time. Feels safe going home. History of suicide attempt by hanging in 5th grade. 01/02/20231721 Last Filed Value PHQ-9 Little interest or pleasure in doing things More than half the days More than half the days Feeling down, depressed, or hopeless Nearly every day Nearly every day Trouble falling or staying asleep, or sleeping too much Nearly every day Nearly every day Feeling tired or having little energy Nearly every day Nearly every day Poor appetite or overeating Nearly every day Nearly every day Feeling bad about yourself - or that you are a failure or have let yourself or your family down More than half the days More than half the days Trouble concentrating on things, such as reading the newspaper or watching television Nearly every day Nearly every day Moving or speaking so slowly that other people could have noticed. Or the opposite - being so fidgety or restless that you have been moving around a lot more than usual Nearly every day Nearly every day Thoughts that you would be better off , or of hurting yourself in some way Several days Several days If you checked off any problems, how difficult have these problems made it for you to do your work, take care of things at home, or get along with other people? Very difficult Very difficult PHQ-9 score 23 23 PHQ-9 Score 23 23 PHQ-2 score 5 5 PHQ-2 Score 5 5 01/02/2023 172 Last Filed Value CAMRON-7 - over the last 2 weeks... Feeling nervous, anxious, or on edge Nearly Everyday Nearly Everyday Not being able to stop or control worrying More than half the days More than half the days Worrying too much about different things Nearly Everyday Nearly Everyday Trouble relaxing More than half the days More than half the days Being so restless that it is hard to sit still More than half the days More than half the days Becoming easily annoyed or irritable Nearly Everyday Nearly Everyday Feeling afraid, as if something awful might happen Nearly Everyday Nearly Everyday How difficult to do work, care for home, get along with people Very difficult Very difficult CAMRON-2 Total Score 5 5 CAMRON-7 Total Score 18 18 CAMRON-7 Score 18 18 Would like referral to counseling. Past medical history, appointments, medications, allergies reviewed. Previous Medical History PAST MEDICAL HISTORY Diagnosis Date Allergic rhinitis due to dust mite 03/18/2019 Bilateral bunions 11/01/2016 S/p bunionectomy Brody COVID-19 virus infection 05/27/202105/2021 Depression, major, single episode, mild (HCC) 09/15/2018 CAMRON (generalized anxiety disorder) 09/15/2018 Nexplanon insertion 04/19/2021 Pollen-food allergy 03/18/2019 Seasonal allergic rhinitis due to pollen 03/18/2019 Seasonal allergies Previous Surgical History PAST SURGICAL HISTORY Procedure Laterality Date CORRECTION OF BUNION Bilateral 11/02 left foot 05/04 right foot Family History FAMILY HISTORY Problem Relation Age of Onset Diabetes Mother Kidney Disease Mother Arthritis Mother Neuropathy Mother No Known Problems Father None Other Prostate Cancer No Family History Colon Cancer No Family History Breast Cancer No Family History Ovarian cancer No Family History Coronary Artery Disease No Family History Hypertension No Family History Hyperlipidemia No Family History Seizures No Family History Stroke No Family History Thyroid No Family History Patient Allergies ALLERGIES Allergen Reactions Kiwi Other: See Comments Throat becomes itchy Latex Other: See Comments itching Banana Itching Pollen food allergy Celery Itching Pollen food allergy. Itching mouth Grass Pollen Unknown Seasonal Allergies Unknown DUST MITES, TREES, GRASSES, WEEDS AND RAGWEED VERIFIED BY SKIN TESTING Tree And Shrub Poll* Unknown Current Medications Current Outpatient Medications on File Prior to Visit Medication Sig Mth-Me Blue-Sod Hdwc-WnRwe-Jgc (URIBEL) 118-10-40.8-36 mg Take 1 capsule by mouth as needed. fexofenadine (CLAU) 180 mg tablet Take 1 tablet by mouth once daily. sertraline (ZOLOFT) 100 mg tablet Take 1 tablet by mouth once daily. montelukast (SINGULAIR) 10 mg tablet Take 1 tablet by mouth daily at bedtime. cephALEXin (KEFLEX) 250 mg capsule Take 1 capsule by mouth as needed. After intercourse phenazopyridine (PYRIDIUM) 200 mg tablet Take 1 tablet by mouth as needed. fluticasone (FLONASE) 50 mcg/actuation nasal spray Use 2 Sprays in each nostril once daily. etonogestrel (NEXPLANON) subdermal implant 68 mg 68 mg by SUBDERMAL route. ibuprofen (MOTRIN) 800 mg tablet Take 1 tablet by mouth every 8 hours as needed for pain. Take with food. tretinoin (RETIN-A) 0.025 % topical cream Apply to affected area daily at bedtime. docusate sodium (COLACE) 100 mg capsule Take 100 mg by mouth three times daily. clindamycin (CLEOCIN-T) 1 % gel Apply to affected area twice daily. clotrimazole-betamethasone (LOTRISONE) cream Apply 1 application to affected area twice daily. etonogestrel (NEXPLANON) subdermal implant 68 mg 1 Each by SUBDERMAL route as directed. No current facility-administered medications on file prior to visit. Social History Social History Tobacco Use Smoking status: Never Smokeless tobacco: Never Vaping Use Vaping Use: Never used Substance Use Topics Alcohol use: No Drug use: No Review of Symptoms REVIEW OF SYSTEMS See HPI EXAM: BP 118/68 Pulse 113 Resp 16 Wt 86.5 kg (190 lb 9.6 oz) LMP 04/04/2022 (Exact Date) SpO2 96% BMI 33.23 kg/m General Appearance: Well appearing, alert, in no acute distress, well-hydrated, well nourished.. PSYCH: Posture and motor behavior: sitting slumped in the chair Dress, grooming, personal hygiene: well dressed and groomed Facial expression: poor eye contact Speech: mumbles Mood: sad Coherency and relevance of thought: normal thought processes Memory: normal memory Health Maintenance List INFLUENZA(1) due on 01/17/2023 GC (GONORRHEA) SCREENING (18-24) due on 06/05/2023 CHLAMYDIA SCREENING (18-24) due on 06/05/2023 DTAP,TDAP,TD(7 - Td or Tdap) due on 12/12/2024 HEPATITIS B Completed HPV VACCINE Completed HEPATITIS C SCREENING Completed HIV SCREENING Completed COVID-19 VACCINE Completed MENINGOCOCCAL B: Consider based on risk Discontinued ASSESSMENT/PLAN: 1. Anxiety with depression - ICD9: 300.4, ICD10: F41.8 (primary diagnosis) ADILENE form completed. Uncontrolled anxiety and depression on current regimen. Having fatigue as side effect from zoloft, so she does not want to try higher dosage. Will switch to Prozac and taper dose over 2 weeks. F/u in 4 weeks. Refer to counseling. Contracted for safety. Red flags for re-assessment reviewed with patient in detail. - CONSULT TO PRIMARY CARE BEHAVIORAL HEALTH ADULT - FLUOXETINE 20 MG CAPSULE 2. Homelessness - ICD9: V60.0, ICD10: Z59.00 Will refer to social work to assist with resources in the area. - PRIMARY CARE SOCIAL WORK CONSULT I spent a total of 30 minutes on the date of the service which included preparing to see the patient, [id number] patient care, completing clinical documentation, obtaining and/or reviewing separately obtained history, performing a medically appropriate examination, counseling and educating the patient/family/caregiver, and ordering medications, tests, or procedures. Onesimo Saunders MD documented in this encounter [facility] 12-09-2022 Miscellaneous Notes Notified via [employer]. Roya Zamudio Ma Left message for pt to contact office. Also sent [facility] msg for pt to contact office. Gail Durham LPN Let patient know we have never prescribed pyridium for her and not a routine med that is refilled. If having symptoms of a UTI she should be seen Med listed as med update TANYA 09/16/22 NOV none scheduled Gail Durham LPN documented in this encounter [facility] 11-29-2022 Miscellaneous Notes The following approved medication requests have been transmitted electronically. Requested Prescriptions Signed Prescriptions Disp Refills ibuprofen (MOTRIN) 800 mg tablet 60 tablet 1 Sig: Take 1 tablet by mouth every 8 hours as needed for pain. Take with food. Authorizing Provider: VLADIMIR HUMPHREY MD Patient last visit 08/21/22 Follow up appointment scheduled none Amanda Baird Ma documented in this encounter [facility] 09-22-2022 Miscellaneous Notes The following approved medication requests have been transmitted electronically. Requested Prescriptions Signed Prescriptions Disp Refills fexofenadine (CLAU) 180 mg tablet 30 tablet 5 Sig: Take 1 tablet by mouth once daily. Authorizing Provider: VLADIMIR HUMPHREY MD Patient phones requesting refills as follows: Requested Prescriptions Pending Prescriptions Disp Refills fexofenadine (CLAU) 180 mg tablet 30 tablet 1 Sig: Take 1 tablet by mouth once daily. TANYA-09/16/22 Labs-03/13/22 NOV-none med filled 07/24/22 Please review and advise. Kathleen Zayas LPN documented in this encounter [facility] 09-16-2022 Note HNO ID: [id number] Author: Nallely Castillo APRN.[employer] Service: ? Author Type: Nurse Practitioner Type: Progress Notes Filed: 09/16/2022 7:10 PM Note Text: This is a 22 year old female who presents today with: Patient presents with: Acute Visit: Would like medication for acne; using otc acne treatments HISTORY OF PRESENT ILLNESS: Mary Verduzco is a 22 year old female. Patient presents with: Acute Visit: Would like medication for acne; using otc acne treatments Pt presents today with complaint of acne. Interested in either tretinoin or clindamycin. Has been dealing with acne since around 16-15. Gets cystic acne on the face. Will get some on back and shoulders, as well. Has used the following in the past without effect: benzyl peroxide, salicylic acid, tea tree products, moisturizer, benzyl peroxide spot treatment. Oil-reducers, snail mucin, aloe vera gel, patches, charcoal face masks. healing cream, BHA toner. She has never used any prescription products for acne. PAST MEDICAL HISTORY: PAST MEDICAL HISTORY Diagnosis Date Allergic rhinitis due to dust mite 03/18/2019 Bilateral bunions 11/01/2016 S/p bunionectomy Brody COVID-19 virus infection 05/27/202105/2021 Depression, major, single episode, mild (HCC) 09/15/2018 CAMRON (generalized anxiety disorder) 09/15/2018 Nexplanon insertion 04/19/2021 Pollen-food allergy 03/18/2019 Seasonal allergic rhinitis due to pollen 03/18/2019 Seasonal allergies PAST SURGICAL HISTORY Procedure Laterality Date CORRECTION OF BUNION Bilateral 11/02 left foot 05/04 right foot ALLERGIES Kiwi, Latex, Banana, Celery, Grass Pollen, Seasonal Allergies, and Tree And Shrub Pollen MEDICATIONS Current Outpatient Medications Medication Sig docusate sodium (COLACE) 100 mg capsule Take 100 mg by mouth three times daily. sertraline (ZOLOFT) 100 mg tablet Take 1 tablet by mouth once daily. montelukast (SINGULAIR) 10 mg tablet Take 1 tablet by mouth daily at bedtime. cephALEXin (KEFLEX) 250 mg capsule Take 1 capsule by mouth as needed. After intercourse phenazopyridine (PYRIDIUM) 200 mg tablet Take 1 tablet by mouth as needed. clindamycin (CLEOCIN-T) 1 % gel Apply to affected area twice daily. fexofenadine (CLAU) 180 mg tablet Take 1 tablet by mouth once daily. fluticasone (FLONASE) 50 mcg/actuation nasal spray Use 2 Sprays in each nostril once daily. clotrimazole-betamethasone (LOTRISONE) cream Apply 1 application to affected area twice daily. ibuprofen (MOTRIN) 800 mg tablet Take 1 tablet by mouth every 8 hours as needed for pain. Take with food. etonogestrel (NEXPLANON) subdermal implant 68 mg 1 Each by SUBDERMAL route as directed. etonogestrel (NEXPLANON) subdermal implant 68 mg 68 mg by SUBDERMAL route. No current facility-administered medications for this visit. FAMILY HISTORY Problem Relation Age of Onset Diabetes Mother Kidney Disease Mother Arthritis Mother Neuropathy Mother No Known Problems Father None Other Prostate Cancer No Family History Colon Cancer No Family History Breast Cancer No Family History Ovarian cancer No Family History Coronary Artery Disease No Family History Hypertension No Family History Hyperlipidemia No Family History Seizures No Family History Stroke No Family History Thyroid No Family History Social History Tobacco Use Smoking status: Never Smokeless tobacco: Never Vaping Use Vaping Use: Never used Substance Use Topics Alcohol use: No Drug use: No EXAM: BP 118/82 Pulse 89 Resp 18 LMP 04/04/2022 (Exact Date) SpO2 99% PHYSICAL EXAM: General Appearance: Well appearing, alert, in no acute distress, well-hydrated, well nourished. Skin: Skin color, texture, turgor normal. + cystic acne on the bilateral cheeks. Head: Normocephalic, no masses, lesions, tenderness or abnormalities. Eyes: Anicteric sclera. Extraocular movements are intact. . Lungs: Lungs clear to auscultation. No wheezing, rhonchi, rales.. Heart: RRR without murmur, gallop, or rubs. No ectopy. Neurologic: Gait normal. ASSESSMENT/PLAN: 1. Acne vulgaris - ICD9: 706.1, ICD10: L70.0 Will start tretinoin. Discussed to mix 50/50 with moisturizer and apply daily at bedtime. Use clindamycin gel for spot treatment. - TRETINOIN 0.025 % TOPICAL CREAM Also discussed potentially adding daily minocycline. Discussed accutane, but would need to be prescribed by dermatology. Discussed treatment plan and patient voices understanding. Patient's questions answered appropriately. Medications and potential side effects were discussed and patient voices understanding. Return to the office as scheduled or as needed for worsening/no improvement. Nallely Castillo APRN.CNP [facility] 09-16-2022 Instructions Nallely Castillo APRN.CNP - 09/16/2022 6:44 PM EDT Start the tretinoin cream. Let me know if covered or not. Use the clindamycin cream for spot treatment. documented in this encounter [facility] 09-16-2022 History of Present illness Narrative This is a 22 year old female who presents today with: Patient presents with: Acute Visit: Would like medication for acne; using otc acne treatments HISTORY OF PRESENT ILLNESS: Mary Verduzco is a 22 year old female. Patient presents with: Acute Visit: Would like medication for acne; using otc acne treatments Pt presents today with complaint of acne. Interested in either tretinoin or clindamycin. Has been dealing with acne since around . Gets cystic acne on the face. Will get some on back and shoulders, as well. Has used the following in the past without effect: benzyl peroxide, salicylic acid, tea tree products, moisturizer, benzyl peroxide spot treatment. Oil-reducers, snail mucin, aloe vera gel, patches, charcoal face masks. healing cream, BHA toner. She has never used any prescription products for acne. PAST MEDICAL HISTORY: PAST MEDICAL HISTORY Diagnosis Date Allergic rhinitis due to dust mite 03/18/2019 Bilateral bunions 11/01/2016 S/p bunionectomy Brody COVID-19 virus infection 05/27/202105/2021 Depression, major, single episode, mild (HCC) 09/15/2018 CAMRON (generalized anxiety disorder) 09/15/2018 Nexplanon insertion 04/19/2021 Pollen-food allergy 03/18/2019 Seasonal allergic rhinitis due to pollen 03/18/2019 Seasonal allergies PAST SURGICAL HISTORY Procedure Laterality Date CORRECTION OF BUNION Bilateral 11/02 left foot 05/04 right foot ALLERGIES Kiwi, Latex, Banana, Celery, Grass Pollen, Seasonal Allergies, and Tree And Shrub Pollen MEDICATIONS Current Outpatient Medications Medication Sig docusate sodium (COLACE) 100 mg capsule Take 100 mg by mouth three times daily. sertraline (ZOLOFT) 100 mg tablet Take 1 tablet by mouth once daily. montelukast (SINGULAIR) 10 mg tablet Take 1 tablet by mouth daily at bedtime. cephALEXin (KEFLEX) 250 mg capsule Take 1 capsule by mouth as needed. After intercourse phenazopyridine (PYRIDIUM) 200 mg tablet Take 1 tablet by mouth as needed. clindamycin (CLEOCIN-T) 1 % gel Apply to affected area twice daily. fexofenadine (CLAU) 180 mg tablet Take 1 tablet by mouth once daily. fluticasone (FLONASE) 50 mcg/actuation nasal spray Use 2 Sprays in each nostril once daily. clotrimazole-betamethasone (LOTRISONE) cream Apply 1 application to affected area twice daily. ibuprofen (MOTRIN) 800 mg tablet Take 1 tablet by mouth every 8 hours as needed for pain. Take with food. etonogestrel (NEXPLANON) subdermal implant 68 mg 1 Each by SUBDERMAL route as directed. etonogestrel (NEXPLANON) subdermal implant 68 mg 68 mg by SUBDERMAL route. No current facility-administered medications for this visit. FAMILY HISTORY Problem Relation Age of Onset Diabetes Mother Kidney Disease Mother Arthritis Mother Neuropathy Mother No Known Problems Father None Other Prostate Cancer No Family History Colon Cancer No Family History Breast Cancer No Family History Ovarian cancer No Family History Coronary Artery Disease No Family History Hypertension No Family History Hyperlipidemia No Family History Seizures No Family History Stroke No Family History Thyroid No Family History Social History Tobacco Use Smoking status: Never Smokeless tobacco: Never Vaping Use Vaping Use: Never used Substance Use Topics Alcohol use: No Drug use: No EXAM: BP 118/82 Pulse 89 Resp 18 LMP 04/04/2022 (Exact Date) SpO2 99% PHYSICAL EXAM: General Appearance: Well appearing, alert, in no acute distress, well-hydrated, well nourished. Skin: Skin color, texture, turgor normal. + cystic acne on the bilateral cheeks. Head: Normocephalic, no masses, lesions, tenderness or abnormalities. Eyes: Anicteric sclera. Extraocular movements are intact. . Lungs: Lungs clear to auscultation. No wheezing, rhonchi, rales.. Heart: RRR without murmur, gallop, or rubs. No ectopy. Neurologic: Gait normal. ASSESSMENT/PLAN: 1. Acne vulgaris - ICD9: 706.1, ICD10: L70.0 Will start tretinoin. Discussed to mix 50/50 with moisturizer and apply daily at bedtime. Use clindamycin gel for spot treatment. - TRETINOIN 0.025 % TOPICAL CREAM Also discussed potentially adding daily minocycline. Discussed accutane, but would need to be prescribed by dermatology. Discussed treatment plan and patient voices understanding. Patient's questions answered appropriately. Medications and potential side effects were discussed and patient voices understanding. Return to the office as scheduled or as needed for worsening/no improvement. Nallely Castillo APRN.HARIS documented in this encounter [facility] 08-21-2022 Note HNO ID: [id number] Author: Nallely Castillo APRN.HARIS Service: ? Author Type: Nurse Practitioner Type: Progress Notes Filed: 08/21/2022 4:56 PM Note Text: This is a 22 year old female who presents today with: Patient presents with: Yearly Exam HISTORY OF PRESENT ILLNESS: Mary Verduzco is a 22 year old female. Patient presents with: Yearly Exam Pt presents today for physical. Refers that when she does her skin care, will get pain in the top the left ear-- feels like it is tearing. Refers that whenever she moves/stretches, she will get pain in the lateral left thigh. . Reports that she also has a couple of cysts in the perineum. Reports that she frequently gets these from shaving. REVIEW OF SYSTEMS GENERAL: No weight loss, malaise or fevers/chills. + fatigue. HEENT: Negative for frequent or significant headaches, No changes in hearing or vision. NECK: Negative for lumps, goiter, pain and significant neck swelling RESPIRATORY: Negative for cough, hemoptysis, wheezing, dyspnea or shortness of breath CARDIOVASCULAR: Negative for chest pain, leg swelling, orthopnea, or palpitations GI: No nausea, vomiting, or diarrhea. No hematochezia/melena. No heartburn or reflux symptoms. Some constipation -- uses docusate. : No history of dysuria, frequency or incontinence. Nexplanon for control. MUSCULOSKELETAL: see above. SKIN: Negative for lesions, rash, and itching ENDOCRINE: Negative for cold or heat intolerance, polyuria, polydipsia and goiter NEURO: No history of headaches, syncope, paralysis, seizures or tremors ? If she has a UTI. + urgency. + burning. No hematuria. No abdominal pain/back pain. No fever/chills. Sexually active -- currently relationship since beginning of May. PAST MEDICAL HISTORY: PAST MEDICAL HISTORY Diagnosis Date Allergic rhinitis due to dust mite 03/18/2019 Bilateral bunions 11/01/2016 S/p bunionectomy Brody COVID-19 virus infection 05/27/202105/2021 Depression, major, single episode, mild (HCC) 09/15/2018 CAMRON (generalized anxiety disorder) 09/15/2018 Nexplanon insertion 04/19/2021 Pollen-food allergy 03/18/2019 Seasonal allergic rhinitis due to pollen 03/18/2019 Seasonal allergies PAST SURGICAL HISTORY Procedure Laterality Date CORRECTION OF BUNION Bilateral 11/02 left foot 05/04 right foot ALLERGIES Kiwi, Latex, Banana, Celery, Grass Pollen, Seasonal Allergies, and Tree And Shrub Pollen MEDICATIONS Current Outpatient Medications Medication Sig docusate sodium (COLACE) 100 mg capsule Take 100 mg by mouth three times daily. fexofenadine (CLAU) 180 mg tablet Take 1 tablet by mouth once daily. fluticasone (FLONASE) 50 mcg/actuation nasal spray Use 2 Sprays in each nostril once daily. clotrimazole-betamethasone (LOTRISONE) cream Apply 1 application to affected area twice daily. sertraline (ZOLOFT) 100 mg tablet Take 1 tablet by mouth once daily. montelukast (SINGULAIR) 10 mg tablet Take 1 tablet by mouth daily at bedtime. ibuprofen (MOTRIN) 800 mg tablet Take 1 tablet by mouth every 8 hours as needed for pain. Take with food. etonogestrel (NEXPLANON) subdermal implant 68 mg 1 Each by SUBDERMAL route as directed. etonogestrel (NEXPLANON) subdermal implant 68 mg 68 mg by SUBDERMAL route. No current facility-administered medications for this visit. FAMILY HISTORY Problem Relation Age of Onset Diabetes Mother Kidney Disease Mother Arthritis Mother Neuropathy Mother No Known Problems Father None Other Prostate Cancer No Family History Colon Cancer No Family History Breast Cancer No Family History Ovarian cancer No Family History Coronary Artery Disease No Family History Hypertension No Family History Hyperlipidemia No Family History Seizures No Family History Stroke No Family History Thyroid No Family History Social History Tobacco Use Smoking status: Never Smokeless tobacco: Never Vaping Use Vaping Use: Never used Substance Use Topics Alcohol use: No Drug use: No EXAM: BP 104/82 Pulse 97 Resp 18 Ht 161.3 cm (5' 3.5 ) Wt 87.1 kg (192 lb) LMP 04/04/2022 (Exact Date) SpO2 97% BMI 33.48 kg/m? PHYSICAL EXAM: General Appearance: Well appearing, alert, in no acute distress, well-hydrated, well nourished.. Skin: Skin color, texture, turgor normal, no suspicious rashes or lesions. Head: Normocephalic, no masses, lesions, tenderness or abnormalities. Eyes: Anicteric sclera. Pupils are equally round and reactive to light. Extraocular movements are intact. . Ears: External ears normal, canals clear, Normal TMs bilaterally. Oropharynx: Lips, mucosa, and tongue normal, teeth and gums normal, oropharynx normal. Neck: Supple, no adenopathy; thyroid symmetric, normal size, no bruits. Lungs: Lungs clear to auscultation. No wheezing, rhonchi, rales.. Heart: RRR without murmur, gallop, or rubs. No ectopy. Abdomen: Normal abdominal exam, Abdomen (more content not included)... [facility] 08-21-2022 Instructions Nallely Castillo APRN.CNP - 08/21/2022 4:37 PM EDT Start the macrobid (nitrofurantoin). Continue other medications. Health Promotion: - Eat healthy -- go to [employer] to get started - Have a yearly physical - Mammogram yearly after age 40 - Get at least 30 minutes of physical activity daily - Get at least 7 to 8 hours of sleep each night - Reach and maintain a healthy weight - Get help to quit or don't start smoking - Limit alcohol use to one drink or less - Do not use illegal drugs or misuse prescription drugs - Wear a helmet when riding a bike and wear protective gear for sports - Wear a seatbelt in cars and not text and drive - Wear sunscreen documented in this encounter [facility] 08-21-2022 History of Present illness Narrative This is a 22 year old female who presents today with: Patient presents with: Yearly Exam HISTORY OF PRESENT ILLNESS: Mary Verduzco is a 22 year old female. Patient presents with: Yearly Exam Pt presents today for physical. Refers that when she does her skin care, will get pain in the top the left ear-- feels like it is tearing. Refers that whenever she moves/stretches, she will get pain in the lateral left thigh. . Reports that she also has a couple of cysts in the perineum. Reports that she frequently gets these from shaving. REVIEW OF SYSTEMS GENERAL: No weight loss, malaise or fevers/chills. + fatigue. HEENT: Negative for frequent or significant headaches, No changes in hearing or vision. NECK: Negative for lumps, goiter, pain and significant neck swelling RESPIRATORY: Negative for cough, hemoptysis, wheezing, dyspnea or shortness of breath CARDIOVASCULAR: Negative for chest pain, leg swelling, orthopnea, or palpitations GI: No nausea, vomiting, or diarrhea. No hematochezia/melena. No heartburn or reflux symptoms. Some constipation -- uses docusate. : No history of dysuria, frequency or incontinence. Nexplanon for control. MUSCULOSKELETAL: see above. SKIN: Negative for lesions, rash, and itching ENDOCRINE: Negative for cold or heat intolerance, polyuria, polydipsia and goiter NEURO: No history of headaches, syncope, paralysis, seizures or tremors ? If she has a UTI. + urgency. + burning. No hematuria. No abdominal pain/back pain. No fever/chills. Sexually active -- currently relationship since beginning of May. PAST MEDICAL HISTORY: PAST MEDICAL HISTORY Diagnosis Date Allergic rhinitis due to dust mite 03/18/2019 Bilateral bunions 11/01/2016 S/p bunionectomy Brody COVID-19 virus infection 05/27/202105/2021 Depression, major, single episode, mild (HCC) 09/15/2018 CAMRON (generalized anxiety disorder) 09/15/2018 Nexplanon insertion 04/19/2021 Pollen-food allergy 03/18/2019 Seasonal allergic rhinitis due to pollen 03/18/2019 Seasonal allergies PAST SURGICAL HISTORY Procedure Laterality Date CORRECTION OF BUNION Bilateral 11/02 left foot 05/04 right foot ALLERGIES Kiwi, Latex, Banana, Celery, Grass Pollen, Seasonal Allergies, and Tree And Shrub Pollen MEDICATIONS Current Outpatient Medications Medication Sig docusate sodium (COLACE) 100 mg capsule Take 100 mg by mouth three times daily. fexofenadine (CLAU) 180 mg tablet Take 1 tablet by mouth once daily. fluticasone (FLONASE) 50 mcg/actuation nasal spray Use 2 Sprays in each nostril once daily. clotrimazole-betamethasone (LOTRISONE) cream Apply 1 application to affected area twice daily. sertraline (ZOLOFT) 100 mg tablet Take 1 tablet by mouth once daily. montelukast (SINGULAIR) 10 mg tablet Take 1 tablet by mouth daily at bedtime. ibuprofen (MOTRIN) 800 mg tablet Take 1 tablet by mouth every 8 hours as needed for pain. Take with food. etonogestrel (NEXPLANON) subdermal implant 68 mg 1 Each by SUBDERMAL route as directed. etonogestrel (NEXPLANON) subdermal implant 68 mg 68 mg by SUBDERMAL route. No current facility-administered medications for this visit. FAMILY HISTORY Problem Relation Age of Onset Diabetes Mother Kidney Disease Mother Arthritis Mother Neuropathy Mother No Known Problems Father None Other Prostate Cancer No Family History Colon Cancer No Family History Breast Cancer No Family History Ovarian cancer No Family History Coronary Artery Disease No Family History Hypertension No Family History Hyperlipidemia No Family History Seizures No Family History Stroke No Family History Thyroid No Family History Social History Tobacco Use Smoking status: Never Smokeless tobacco: Never Vaping Use Vaping Use: Never used Substance Use Topics Alcohol use: No Drug use: No EXAM: BP 104/82 Pulse 97 Resp 18 Ht 161.3 cm (5' 3.5 ) Wt 87.1 kg (192 lb) LMP 04/04/2022 (Exact Date) SpO2 97% BMI 33.48 kg/m PHYSICAL EXAM: General Appearance: Well appearing, alert, in no acute distress, well-hydrated, well nourished.. Skin: Skin color, texture, turgor normal, no suspicious rashes or lesions. Head: Normocephalic, no masses, lesions, tenderness or abnormalities. Eyes: Anicteric sclera. Pupils are equally round and reactive to light. Extraocular movements are intact. . Ears: External ears normal, canals clear, Normal TMs bilaterally. Oropharynx: Lips, mucosa, and tongue normal, teeth and gums normal, oropharynx normal. Neck: Supple, no adenopathy; thyroid symmetric, normal size, no bruits. Lungs: Lungs clear to auscultation. No wheezing, rhonchi, rales.. Heart: RRR without murmur, gallop, or rubs. No ectopy. Abdomen: Normal abdominal exam, Abdomen soft, non-tender. Bowel sounds normal. No masses, organomegaly. Extremities: No deformities, edema, skin discoloration, clubbing or cyanosis. Good capillary refill. No pain to the left upper leg with palpation or ROM. Neurologic: Gait normal. Reflexes normal and symmetric. Sensation grossly intact.. Pelvic: has small furuncles noted on bilateral inner thigh/buttock. ASSESSMENT/PLAN: 1. Wellness examination - ICD9: V70.0, ICD10: Z00.00 (primary diagnosis) - Follow up for annual exam in one year Health Promotion: - Eat healthy -- go to [employer] to get started - Have a yearly physical - Mammogram yearly after age 40 - Get at least 30 minutes of physical activity daily - Get at least 7 to 8 hours of sleep each night - Reach and maintain a healthy weight - Get help to quit or don't start smoking - Limit alcohol use to one drink or less - Do not use illegal drugs or misuse prescription drugs - Wear a helmet when riding a bike and wear protective gear for sports - Wear a seatbelt in cars and not text and drive - Wear sunscreen 2. Acute cystitis without hematuria - ICD9: 595.0, ICD10: N30.00 Send urine for culture. Start macrobid. Reports prone to yeast infections. - UA DIP, URINE (POC) - URINE CULTURE - NITROFURANTOIN MONOHYDRATE & MACROCRYSTAL 100 MG ORAL CAP - FLUCONAZOLE 150 MG TABLET 3. Pain of left lower extremity - ICD9: 729.5, ICD10: M79.605 Suspect quad strain. Encouraged antiinflammatories and stretching. 4. Furuncle - ICD9: 680.9, ICD10: L02.92 - CLINDAMYCIN 1 % TOPICAL GEL Discussed treatment plan and patient voices understanding. Patient's questions answered appropriately. Medications and potential side effects were discussed and patient voices understanding. Return to the office as scheduled or as needed for worsening/no improvement. Nallely Castillo APRN.HARIS documented in this encounter [facility] 07-24-2022 Miscellaneous Notes Spoke with pt and information listed below given. Pt has rescheduled physical. Tata Beauchamp LPN Patient scheduled her physical but it's less than 1 year since her last one and insurance may not cover it. Needs to be done after August 09. Also should be with Dr. Humphrey, myself or Alli to stay within PCP care team. Thanks. Nevaeh Hennessy PA-C Pt stated she takes Clau and will My Chart her PE appt. Kathleen Zayas LPN Pt asking for status on medication. Please advise pt at number [phone] Patient already has scripts for Zyrtec. Which one does she use, zyrtec or clau? Also patient needs a complete PE scheduled for on or after 08/09/2022. Patient has been identified by name and date of : Yes Requested Prescriptions Pending Prescriptions Disp Refills fexofenadine (CLAU) 180 mg tablet 30 tablet 11 Sig: Take 1 tablet by mouth once daily. RX INSTRUCTIONS: Patient aware RX will be sent to pharmacy. No need to notify patient. TANAY 06/24/22 No visit scheduled in primary care. Elvira Bee LPN documented in this encounter [facility] 07-24-2022 Miscellaneous Notes Duplicate request. See 07/19/22 refill encounter. Mary Altamirano MA documented in this encounter [facility] 07-08-2022 Miscellaneous Notes Prescription refilled in another encounter. Amalia Zapien MA documented in this encounter [facility] 07-08-2022 Miscellaneous Notes Patient requests via MyChart refills as follows: Requested Prescriptions Pending Prescriptions Disp Refills fluticasone (FLONASE) 50 mcg/actuation nasal spray 1 Each 11 Sig: Use 2 Sprays in each nostril once daily. TANYA: 06/24/22 NOV: None scheduled Last Refill: 07/06/21 #1 11 refills Melani Jalloh LPN documented in this encounter [facility] 06-24-2022 Note HNO ID: [id number] Author: Nallely Castillo APRN.[employer]PER[employer] Service: ? Author Type: Nurse Practitioner Type: Progress Notes Filed: 06/24/2022 7:02 PM Note Text: This is a 22 year old female who presents today with: Patient presents with: Discussion: Would like to discuss getting dogs registered as ADILENE's HISTORY OF PRESENT ILLNESS: Mary Verduzco is a 22 year old female. Patient presents with: Discussion: Would like to discuss getting dogs registered as ADILENE's Pt presents today to discuss trying to get her dogs for emotional support animals. Refers that she has had one for 7 years and one for 4 years. One is Chihuahua and one is chisandraahua/indy montgomery. Refers that she is moving and only allowed to take one. Refers they are house broke. No special training. Refers that they are up-to-date with vaccinations. Refers they have never bitten or been aggressive. Refers that she cannot bear to lose either dog. Refers the dogs are there for her when she needs them. Refers if she is depressed or anxious, they calm her down. Refers that she is happier with the dogs, mental health is better with them. Refers that having the dogs make her be able to better function and work outside of the home. She has librado under treatment at this office for depression/anxiety since 2018. PAST MEDICAL HISTORY: PAST MEDICAL HISTORY Diagnosis Date Allergic rhinitis due to dust mite 03/18/2019 Bilateral bunions 11/01/2016 S/p bunionectomy Brody COVID-19 virus infection 05/27/202105/2021 Depression, major, single episode, mild (HCC) 09/15/2018 CAMRON (generalized anxiety disorder) 09/15/2018 Nexplanon insertion 04/19/2021 Pollen-food allergy 03/18/2019 Seasonal allergic rhinitis due to pollen 03/18/2019 Seasonal allergies PAST SURGICAL HISTORY Procedure Laterality Date CORRECTION OF BUNION Bilateral 11/02 left foot 05/04 right foot ALLERGIES Kiwi, Banana, Celery, Grass Pollen, Seasonal Allergies, and Tree And Shrub Pollen MEDICATIONS Current Outpatient Medications Medication Sig clotrimazole-betamethasone (LOTRISONE) cream Apply 1 application to affected area twice daily. sertraline (ZOLOFT) 100 mg tablet Take 1 tablet by mouth once daily. cetirizine (ZYRTEC) 10 mg tablet TAKE 1 TABLET BY MOUTH AT BEDTIME NEEDED FOR ITCHING,SNEEZING OR RUNNY NOSE montelukast (SINGULAIR) 10 mg tablet Take 1 tablet by mouth daily at bedtime. fexofenadine (CLAU) 180 mg tablet Take 1 tablet by mouth once daily. fluticasone (FLONASE) 50 mcg/actuation nasal spray Use 2 Sprays in each nostril once daily. ibuprofen (MOTRIN) 800 mg tablet Take 1 tablet by mouth every 8 hours as needed for pain. Take with food. etonogestrel (NEXPLANON) subdermal implant 68 mg 1 Each by SUBDERMAL route as directed. etonogestrel (NEXPLANON) subdermal implant 68 mg 68 mg by SUBDERMAL route. No current facility-administered medications for this visit. FAMILY HISTORY Problem Relation Age of Onset Diabetes Mother Kidney Disease Mother Arthritis Mother Neuropathy Mother No Known Problems Father None Other Prostate Cancer No Family History Colon Cancer No Family History Breast Cancer No Family History Ovarian cancer No Family History Coronary Artery Disease No Family History Hypertension No Family History Hyperlipidemia No Family History Seizures No Family History Stroke No Family History Thyroid No Family History Social History Tobacco Use Smoking status: Never Smokeless tobacco: Never Vaping Use Vaping Use: Never used Substance Use Topics Alcohol use: No Drug use: No EXAM: BP 122/82 Pulse 109 Resp 18 LMP 04/04/2022 (Exact Date) SpO2 98% PHYSICAL EXAM: General Appearance: Well appearing, alert, in no acute distress, well-hydrated, well nourished.. Skin: Skin color, texture, turgor normal, no suspicious rashes or lesions. Head: Normocephalic, no masses, lesions, tenderness or abnormalities. Eyes: Anicteric sclera. Pupils are equally round and reactive to light. Extraocular movements are intact. . Neurologic: Gait normal. Reflexes normal and symmetric. Sensation grossly intact.. ASSESSMENT/PLAN: 1. Depression, major, single episode, mild (HCC) - ICD9: 296.21, ICD10: F32.0 (primary diagnosis) 2. CAMRON (generalized anxiety disorder) - ICD9: 300.02, ICD10: F41.1 Anxiety/depression has been stable. Letter done that patient would emotionally benefit from maintaining her pets. Discussed treatment plan and patient voices understanding. Patient's questions answered appropriately. Medications and potential side effects were discussed and patient voices understanding. Return to the office as scheduled or as needed for worsening/no improvement. Nallely Castillo APRN.SUPERVISOR K[employer]ITTING This note was partially generated using Copanion voice recognition system. Note was reviewed for accuracy. There may be minor misspellings or grammar miscues with [employer] voice recognition. [facility] 06-24-2022 History of Present illness Narrative This is a 22 year old female who presents today with: Patient presents with: Discussion: Would like to discuss getting dogs registered as ADILENE's HISTORY OF PRESENT ILLNESS: Mary Verduzco is a 22 year old female. Patient presents with: Discussion: Would like to discuss getting dogs registered as ADILENE's Pt presents today to discuss trying to get her dogs for emotional support animals. Refers that she has had one for 7 years and one for 4 years. One is Chihuahua and one is chihuahua/indy montgomery. Refers that she is moving and only allowed to take one. Refers they are house broke. No special training. Refers that they are up-to-date with vaccinations. Refers they have never bitten or been aggressive. Refers that she cannot bear to lose either dog. Refers the dogs are there for her when she needs them. Refers if she is depressed or anxious, they calm her down. Refers that she is happier with the dogs, mental health is better with them. Refers that having the dogs make her be able to better function and work outside of the home. She has librado under treatment at this office for depression/anxiety since 2018. PAST MEDICAL HISTORY: PAST MEDICAL HISTORY Diagnosis Date Allergic rhinitis due to dust mite 03/18/2019 Bilateral bunions 11/01/2016 S/p bunionectomy Brody COVID-19 virus infection 05/27/202105/2021 Depression, major, single episode, mild (HCC) 09/15/2018 CAMRON (generalized anxiety disorder) 09/15/2018 Nexplanon insertion 04/19/2021 Pollen-food allergy 03/18/2019 Seasonal allergic rhinitis due to pollen 03/18/2019 Seasonal allergies PAST SURGICAL HISTORY Procedure Laterality Date CORRECTION OF BUNION Bilateral 11/02 left foot 05/04 right foot ALLERGIES Kiwi, Banana, Celery, Grass Pollen, Seasonal Allergies, and Tree And Shrub Pollen MEDICATIONS Current Outpatient Medications Medication Sig clotrimazole-betamethasone (LOTRISONE) cream Apply 1 application to affected area twice daily. sertraline (ZOLOFT) 100 mg tablet Take 1 tablet by mouth once daily. cetirizine (ZYRTEC) 10 mg tablet TAKE 1 TABLET BY MOUTH AT BEDTIME NEEDED FOR ITCHING,SNEEZING OR RUNNY NOSE montelukast (SINGULAIR) 10 mg tablet Take 1 tablet by mouth daily at bedtime. fexofenadine (CLAU) 180 mg tablet Take 1 tablet by mouth once daily. fluticasone (FLONASE) 50 mcg/actuation nasal spray Use 2 Sprays in each nostril once daily. ibuprofen (MOTRIN) 800 mg tablet Take 1 tablet by mouth every 8 hours as needed for pain. Take with food. etonogestrel (NEXPLANON) subdermal implant 68 mg 1 Each by SUBDERMAL route as directed. etonogestrel (NEXPLANON) subdermal implant 68 mg 68 mg by SUBDERMAL route. No current facility-administered medications for this visit. FAMILY HISTORY Problem Relation Age of Onset Diabetes Mother Kidney Disease Mother Arthritis Mother Neuropathy Mother No Known Problems Father None Other Prostate Cancer No Family History Colon Cancer No Family History Breast Cancer No Family History Ovarian cancer No Family History Coronary Artery Disease No Family History Hypertension No Family History Hyperlipidemia No Family History Seizures No Family History Stroke No Family History Thyroid No Family History Social History Tobacco Use Smoking status: Never Smokeless tobacco: Never Vaping Use Vaping Use: Never used Substance Use Topics Alcohol use: No Drug use: No EXAM: BP 122/82 Pulse 109 Resp 18 LMP 04/04/2022 (Exact Date) SpO2 98% PHYSICAL EXAM: General Appearance: Well appearing, alert, in no acute distress, well-hydrated, well nourished.. Skin: Skin color, texture, turgor normal, no suspicious rashes or lesions. Head: Normocephalic, no masses, lesions, tenderness or abnormalities. Eyes: Anicteric sclera. Pupils are equally round and reactive to light. Extraocular movements are intact. . Neurologic: Gait normal. Reflexes normal and symmetric. Sensation grossly intact.. ASSESSMENT/PLAN: 1. Depression, major, single episode, mild (HCC) - ICD9: 296.21, ICD10: F32.0 (primary diagnosis) 2. CAMRON (generalized anxiety disorder) - ICD9: 300.02, ICD10: F41.1 Anxiety/depression has been stable. Letter done that patient would emotionally benefit from maintaining her pets. Discussed treatment plan and patient voices understanding. Patient's questions answered appropriately. Medications and potential side effects were discussed and patient voices understanding. Return to the office as scheduled or as needed for worsening/no improvement. Nallely Castillo APRN.CNP This note was partially generated using [employer] voice recognition system. Note was reviewed for accuracy. There may be minor misspellings or grammar miscues with [employer] voice recognition. documented in this encounter [facility] 06-06-2022 Note HNO ID: [id number] Author: Veronica Milan APRN.CNP Service: ? Author Type: Nurse Practitioner Type: Progress Notes Filed: 06/06/2022 4:41 PM Note Text: Mary is a 21 year old who presents for an annual gynecologic exam continued itching to vulva and vagina. Vaginal cultures negative yesterday at problem visit for vulvovaginal itching. Presents: alone Menses: spotting with random menses Contraception: Nexplanon 04/19/2021 HPV vaccine: Yes Last pap smear: never Sexually active: Yes History of STDS: None Patient concerns for STD exposure: No. - GCCT and trich negative 06/05/2022 Time with current partner: 2 weeks Pain with intercourse: No Postcoital bleeding: No OB History T0 L0 SAB0 IAB0 Ectopic0 Multiple0 Live Births0 Reading Assistant History LMP: 04/04/2022 (Exact Date), Implant Age at Menarche: Age at First : Age at Menopause: Reading Assistant History Comments: Sexual Activity: Yes; No partner data on record Contraception: Condom, Implant PAST MEDICAL HISTORY Diagnosis Date Allergic rhinitis due to dust mite 03/18/2019 Bilateral bunions 11/01/2016 S/p bunionectomy Brody COVID-19 virus infection 05/27/202105/2021 Depression, major, single episode, mild (HCC) 09/15/2018 Encounter for gynecological examination 06/28/2020 [facility] CAMRON (generalized anxiety disorder) 09/15/2018 Nexplanon insertion 04/19/2021 Pollen-food allergy 03/18/2019 Seasonal allergic rhinitis due to pollen 03/18/2019 Seasonal allergies PAST SURGICAL HISTORY Procedure Laterality Date CORRECTION OF BUNION Bilateral 11/02 left foot 05/04 right foot FAMILY HISTORY Problem Relation Age of Onset None Other Diabetes Mother Kidney Disease Mother Prostate Cancer No Family History Colon Cancer No Family History Breast Cancer No Family History Ovarian cancer No Family History Coronary Artery Disease No Family History Hypertension No Family History Hyperlipidemia No Family History Seizures No Family History Stroke No Family History Thyroid No Family History SOCIAL HISTORY Social History Tobacco Use Smoking status: Never Smokeless tobacco: Never Vaping Use Vaping Use: Never used Substance Use Topics Alcohol use: No Drug use: No REVIEW OF SYSTEMS Abdomen: No bloating, early satiety, indigestion, or increased flatulence. No abdominal pain, nausea, vomiting, diarrhea, or constipation. Bladder: No dysuria, gross hematuria, urinary frequency, urinary urgency, or incontinence. Breast: No breast lumps, nipple d/c, overlying skin changes, redness or skin retraction. Allergies and current medication updated:Yes EXAM: BP 122/72 Ht 5' 3.5 (1.61m) Wt 191 lb 6.4 oz (86.8kg) LMP 04/04/2022 BMI 33.37 kg/(m2). GENERAL: pleasant, Female in no apparent distress HEENT: Normocephalic, atraumatic, mucus membranes moist, and no lesions NECK: Supple, full range of motion, no adenopathy, and thyroid normal DERMATOLOGY: Normal, without lesions, non-icteric, and non-hirsute BREAST: deferred CHEST: Normal inspiratory effort ABDOMEN: soft, non-tender, and no masses PELVIC: deferred BIMANUAL: deferred NEURO: alert and oriented x3,exam grossly non-focal EXTREMITIES: normal ASSESSMENT/PLAN: 1) Health maintenance: Pap starting at the age of 21. Safe sex practices reviewed. Nutrition, exercise, and routine health maintenance exams reviewed. HPV vaccine completed series.. 2. Vulvovaginal itching - ICD9: 698.1, ICD10: L29.2 - allergy to banana and kiwi - itching around mouth. No known allergy to latex but discussed she is likely to allergic to latex. Using latex condoms with new partner of 2 weeks. Recalls itching with previous use of condoms also. Will see if any latex in her sex toys also.Recommend latex-free condoms. - CLOTRIMAZOLE-BETAMETHASONE 1 %-0.05 % TOPICAL CREAM 3) Contraception: Nexplanon. Contraceptive options reviewed and information provided. 4) STD screening: Declined STD check - negative yesterday 5) Follow up one year or sooner as needed. Veronica Milan APRN.CNP [facility] 06-06-2022 Instructions Veronica Milan APRN.CNP - 06/06/2022 4:19 PM EST Boric acid Lortisone Avoid latex condoms - you nay have an allergy because you are allergic bananas and kiwi. documented in this encounter [facility] 06-06-2022 History of Present illness Narrative Mary is a 21 year old who presents for an annual gynecologic exam continued itching to vulva and vagina. Vaginal cultures negative yesterday at problem visit for vulvovaginal itching. Presents: alone Menses: spotting with random menses Contraception: Nexplanon 04/19/2021 HPV vaccine: Yes Last pap smear: never Sexually active: Yes History of STDS: None Patient concerns for STD exposure: No. - GCCT and trich negative 06/05/2022 Time with current partner: 2 weeks Pain with intercourse: No Postcoital bleeding: No OB History T0 L0 SAB0 IAB0 Ectopic0 Multiple0 Live Births0 Reading Assistant History LMP: 04/04/2022 (Exact Date), Implant Age at Menarche: Age at First : Age at Menopause: Reading Assistant History Comments: Sexual Activity: Yes; No partner data on record Contraception: Condom, Implant PAST MEDICAL HISTORY Diagnosis Date Allergic rhinitis due to dust mite 03/18/2019 Bilateral bunions 11/01/2016 S/p bunionectomy Brody COVID-19 virus infection 05/27/202105/2021 Depression, major, single episode, mild (HCC) 09/15/2018 Encounter for gynecological examination 06/28/2020 [facility] CAMRON (generalized anxiety disorder) 09/15/2018 Nexplanon insertion 04/19/2021 Pollen-food allergy 03/18/2019 Seasonal allergic rhinitis due to pollen 03/18/2019 Seasonal allergies PAST SURGICAL HISTORY Procedure Laterality Date CORRECTION OF BUNION Bilateral 11/02 left foot 05/04 right foot FAMILY HISTORY Problem Relation Age of Onset None Other Diabetes Mother Kidney Disease Mother Prostate Cancer No Family History Colon Cancer No Family History Breast Cancer No Family History Ovarian cancer No Family History Coronary Artery Disease No Family History Hypertension No Family History Hyperlipidemia No Family History Seizures No Family History Stroke No Family History Thyroid No Family History SOCIAL HISTORY Social History Tobacco Use Smoking status: Never Smokeless tobacco: Never Vaping Use Vaping Use: Never used Substance Use Topics Alcohol use: No Drug use: No REVIEW OF SYSTEMS Abdomen: No bloating, early satiety, indigestion, or increased flatulence. No abdominal pain, nausea, vomiting, diarrhea, or constipation. Bladder: No dysuria, gross hematuria, urinary frequency, urinary urgency, or incontinence. Breast: No breast lumps, nipple d/c, overlying skin changes, redness or skin retraction. Allergies and current medication updated:Yes EXAM: BP 122/72 Ht 5' 3.5 (1.61m) Wt 191 lb 6.4 oz (86.8kg) LMP 04/04/2022 BMI 33.37 kg/(m^2). GENERAL: pleasant, Female in no apparent distress HEENT: Normocephalic, atraumatic, mucus membranes moist, and no lesions NECK: Supple, full range of motion, no adenopathy, and thyroid normal DERMATOLOGY: Normal, without lesions, non-icteric, and non-hirsute BREAST: deferred CHEST: Normal inspiratory effort ABDOMEN: soft, non-tender, and no masses PELVIC: deferred BIMANUAL: deferred NEURO: alert and oriented x3,exam grossly non-focal EXTREMITIES: normal ASSESSMENT/PLAN: 1) Health maintenance: Pap starting at the age of 21. Safe sex practices reviewed. Nutrition, exercise, and routine health maintenance exams reviewed. HPV vaccine completed series.. 2. Vulvovaginal itching - ICD9: 698.1, ICD10: L29.2 - allergy to banana and kiwi - itching around mouth. No known allergy to latex but discussed she is likely to allergic to latex. Using latex condoms with new partner of 2 weeks. Recalls itching with previous use of condoms also. Will see if any latex in her sex toys also.Recommend latex-free condoms. - CLOTRIMAZOLE-BETAMETHASONE 1 %-0.05 % TOPICAL CREAM 3) Contraception: Nexplanon. Contraceptive options reviewed and information provided. 4) STD screening: Declined STD check - negative yesterday 5) Follow up one year or sooner as needed. Veronica Milan APRN.HARIS documented in this encounter [facility] 06-05-2022 Note HNO ID: [id number] Author: Veronica Milan APRN.CNP Service: ? Author Type: Nurse Practitioner Type: Progress Notes Filed: 06/05/2022 3:38 PM Note Text: Director Of Reservations offered: Patient declines. Mary Verduzco is a 21 year old female who presents for vaginal pruritis for 10 days. Recent antibiotic use. Also requests STD testing. Vaginal discharge: none. Itching: YES Dyspareunia: No Fever/chills: No Abdominal pain: No Bladder: Negative for dysuria or frequency Bowel: No blood in stool, pain with BM, tarry stool, persistent diarrhea or constipation Any new sexual partners or concern for STD exposure: Yes: new partner Any history of STDs: None Does your partner have any new complaints: No Are you currently taking any medications to treat vaginitis: Yes, finished Monistat 7 and boric acid three days ago. Usually takes probiotic but ran out. Do you use feminine sprays, douches or deodorants: Yes, wipes Menstrual cycle: irregular Nexplanon Contraception: Nexplanon Past medical, surgical, social history, medications and allergies reviewed and updated. OBJECTIVE: BP 118/74 Wt 193 lb (87.5kg) LMP 04/04/2022 GENERAL: Well developed, well nourished in no apparent distress ABDOMEN: soft, non-tender, and no masses PELVIC: external genitalia normal, normal Bartholin's glands, urethra, Bonney's glands, no vulvar lesions, no cervical lesions, good vaginal support, scant white adherent discharge present, normal appearing perineal body and perianal region BIMANUAL: uterus normal size, shape and consistency, no adnexal masses, and non-tender ASSESSMENT/PLAN: 1. Vagina itching - ICD9: 698.1, ICD10: N89.8 (primary diagnosis) - JEAN / TRICHOMONAS AMPLIFICATION - BACTERIAL VAGINOSIS AMPLIFICATION 2. Screen for STD (sexually transmitted disease) - ICD9: V74.5, ICD10: Z11.3 - GC/CHLAMYDIA DNA DET - JEAN / TRICHOMONAS AMPLIFICATION Will notify of results. Follow- up as needed. Veronica Milan APRN.CNP Medical Decision Making: Problems: Low: Acute, uncomplicated illness or injury Data: Unique test(s) ordered: 3+ Medical Decision Making Level: 3 - Low [facility] 06-05-2022 Instructions Veronica Milan APRN.HARIS - 06/05/2022 3:26 PM EST Minimizing irritation of the vulva (area around the vagina) Wear white cotton underwear. Avoid synthetic fabrics and tight clothing. Sleep wearing shorts or pajama bottoms without underwear. Shower as soon as possible after exercise. Avoid clothing detergents and soaps with perfumes or dyes. Use warm (not hot) water to wash the vulva and if you use soap use a product designed for sensitive skin (like Dove or Cetaphil). Do not douche or use creams/powders in the vulvar area unless instructed by your physician. If you must douche, use only plain warm water. Make sure the vulva is dry before dressing by patting dry with a towel. Avoid vigorous rubbing with the towel. You may want to use the blow dryer (on the cool setting only!) on the vulva. The most important way to let your body heal is by avoiding scratching. Many patients find it difficult to avoid scratching at night when they are most aware of the itchiness. You can try taking Benadryl just before bedtime. Some women find it helpful to wear cotton gloves to bed to avoid scratching at night. documented in this encounter [facility] 06-05-2022 History of Present illness Narrative Director Of Reservations offered: Patient declines. Mary Verduzco is a 21 year old female who presents for vaginal pruritis for 10 days. Recent antibiotic use. Also requests STD testing. Vaginal discharge: none. Itching: YES Dyspareunia: No Fever/chills: No Abdominal pain: No Bladder: Negative for dysuria or frequency Bowel: No blood in stool, pain with BM, tarry stool, persistent diarrhea or constipation Any new sexual partners or concern for STD exposure: Yes: new partner Any history of STDs: None Does your partner have any new complaints: No Are you currently taking any medications to treat vaginitis: Yes, finished Monistat 7 and boric acid three days ago. Usually takes probiotic but ran out. Do you use feminine sprays, douches or deodorants: Yes, wipes Menstrual cycle: irregular Nexplanon Contraception: Nexplanon Past medical, surgical, social history, medications and allergies reviewed and updated. OBJECTIVE: BP 118/74 Wt 193 lb (87.5kg) LMP 04/04/2022 GENERAL: Well developed, well nourished in no apparent distress ABDOMEN: soft, non-tender, and no masses PELVIC: external genitalia normal, normal Bartholin's glands, urethra, Bonney's glands, no vulvar lesions, no cervical lesions, good vaginal support, scant white adherent discharge present, normal appearing perineal body and perianal region BIMANUAL: uterus normal size, shape and consistency, no adnexal masses, and non-tender ASSESSMENT/PLAN: 1. Vagina itching - ICD9: 698.1, ICD10: N89.8 (primary diagnosis) - JEAN / TRICHOMONAS AMPLIFICATION - BACTERIAL VAGINOSIS AMPLIFICATION 2. Screen for STD (sexually transmitted disease) - ICD9: V74.5, ICD10: Z11.3 - GC/CHLAMYDIA DNA DET - JEAN / TRICHOMONAS AMPLIFICATION Will notify of results. Follow- up as needed. Veronica Milan APRN.CNP Medical Decision Making: Problems: Low: Acute, uncomplicated illness or injury Data: Unique test(s) ordered: 3+ Medical Decision Making Level: 3 - Low documented in this encounter [facility] 05-31-2022 Miscellaneous Notes Pt called and is notified of providers message. Pt voices understanding. Michelle Mercado RN Orders are in. Nallely Castillo APRN.HARIS Patient notified of results and provider's instructions. Patient verbalizes understanding. Patient states that her sister has celiac disease and mother has arthritis in her back. Please place blood work orders. Anabell Gray RN Left message to return call to office. message sent as well. Deejay Mccormack LPN Left vm for patient to return call to nurse for provider's message. Complete let patient know that I received her bone scan results. While there were no serious/worrisome findings, it did show a lot of arthritic changes in her joints. Because of this, and I would not necessarily expect to see such widespread arthritic changes, I would like to get some lab work to rule out any autoimmune processes, such as rheumatoid arthritis. The orders are placed for some blood work. She can stop back at her convenience and have this done. Any family history of autoimmune disease processes (such as rheumatoid arthritis, lupus, Crohn's disease or ulcerative colitis, celiac disease, psoriasis)? Nallely Castillo APRN.HARIS documented in this encounter [facility] 05-01-2022 Miscellaneous Notes Patient notified of results and provider's instructions. Patient verbalizes understanding. Anabell Gray RN TC to pt, left message to return call to office. Deejay Mccormack LPN Can please let patient know that I received her lab results. The alk phos continues to be just mildly elevated. It indicates likely from a bone source. I would move forward with getting a bone scan to rule out any bone problems. The order is placed. Please help schedule. Nallely Castillo APRN.CNP documented in this encounter [facility] 03-22-2022 Miscellaneous Notes Message read by pt on 03/21. Deejay Mccormack LPN MC message sent to pt. Deejay Mccormack LPN Left message to return call to office. Deejay Mccormack LPN Can please let patient know that I received her lab results. Her Alk phos is just minimally elevated. Can we please have her return at her convenience in the next couple of weeks to repeat blood work for this. Order is in. documented in this encounter [facility] 03-21-2022 Miscellaneous Notes Faxed referral & patient information to [facility]. Sent MC message to patient notifying to contact office to schedule. Nat Ruiz MA Placed Nallely placed referral for denistry at [facility] on 03/12/22. documented in this encounter [facility] 03-12-2022 Instructions Nallely Castillo APRN.HARIS - 03/12/2022 3:44 PM EDT Get the labwork. Continue ibuprofen for knee. Also ice and compression. Let us know if no better/worsening. Schedule w/ oral surgery. Just let us know where to fax the referral to. documented in this encounter [facility] 03-12-2022 History of Present illness Narrative Chief Complaint Patient presents with: Discussion HPI Mary Verduzco is a 21 year old female who presents here today for an office visit. Established pt of Dr. Humphrey here today for a visit to discuss labs and frenotomy. Pt recently seen by ARSEN Torrez in July for a Wellness Exam. Last seen by me in 2018. Anemia - Pt reports hx of anemia in the past and would like to have labs completed. This was completed in 2019, with normal results. She reports that she has been having more problems w/ fatigue. Refers that it has been going on for the last couple of years. Refers that 8 hours of sleep isn't enough. She could sleep 12 hours a day. She does admit to being a night owl with inconsistent sleep/work schedule. Pain - R knee pain x 3 days, when pt fell to the ground due to tripping and hitting her knee. Since that time pain has been described as numbness and sore, worse with movement. Pain current a /10. Has tried Ibuprofen to alleviate pain. Refers that it is a little bruised. Doesn't think it swelled. Refers she took 800 mg of ibuprofen, which didn't really help that much. Did try some ice. 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 Refers that she doesn't recall seeing anyone for this. Requesting flu shot today and updated vaccines. Per pt records she's only due for Hep C and HIV screening. Will give flu shot today. Past medical history, appointments, medications, allergies reviewed. Previous Medical History PAST MEDICAL HISTORY Diagnosis Date Allergic rhinitis due to dust mite 03/18/2019 Bilateral bunions 11/01/2016 S/p bunionectomy [facility] COVID-19 virus infection 05/27/202105/2021 Depression, major, single episode, mild (HCC) 09/15/2018 Encounter for gynecological examination 06/28/2020 [facility] (generalized anxiety disorder) 09/15/2018 Nexplanon insertion 04/19/2021 Pollen-food allergy 03/18/2019 Seasonal allergic rhinitis due to pollen 03/18/2019 Seasonal allergies Previous Surgical History PAST SURGICAL HISTORY Procedure Laterality Date CORRECTION OF BUNION Bilateral 11/02 left foot 05/04 right foot Family History FAMILY HISTORY Problem Relation Age of Onset None Other Diabetes Mother Kidney Disease Mother Prostate Cancer No Family History Colon Cancer No Family History Breast Cancer No Family History Ovarian cancer No Family History Coronary Artery Disease No Family History Hypertension No Family History Hyperlipidemia No Family History Seizures No Family History Stroke No Family History Thyroid No Family History Patient Allergies ALLERGIES Allergen Reactions Kiwi Other: See Comments Throat becomes itchy Banana Itching Pollen food allergy Celery Itching Pollen food allergy. Itching mouth Grass Pollen Unknown Seasonal Allergies Unknown DUST MITES, TREES, GRASSES, WEEDS AND RAGWEED VERIFIED BY SKIN TESTING Tree And Shrub Poll* Unknown Current Medications Current Outpatient Medications on File Prior to Visit Medication Sig boric acid vaginal suppository 600 mg (CPD) Use 1 Suppository vaginally as directed. At bedtime x 14 nights then 1-2 times per week as needed. Unwrap and insert as directed. (Patient not taking: Reported on 11/08/2021 ) cetirizine (ZYRTEC) 10 mg tablet TAKE 1 TABLET BY MOUTH AT BEDTIME NEEDED FOR ITCHING,SNEEZING OR RUNNY NOSE montelukast (SINGULAIR) 10 mg tablet Take 1 tablet by mouth daily at bedtime. fexofenadine (CLAU) 180 mg tablet Take 1 tablet by mouth once daily. fluticasone (FLONASE) 50 mcg/actuation nasal spray Use 2 Sprays in each nostril once daily. sertraline (ZOLOFT) 100 mg tablet Take 1 tablet by mouth once daily. ibuprofen (MOTRIN) 800 mg tablet Take 1 tablet by mouth every 8 hours as needed for pain. Take with food. etonogestrel (NEXPLANON) subdermal implant 68 mg 1 Each by SUBDERMAL route as directed. EPINEPHrine (EPIPEN 2-ORIANA) 0.3 mg/0.3 mL auto-injector Inject 0.3 mL intramuscularly as needed. For allergic reaction.Seek emergent medical care immediately after use.Disp:1 2-pakw/epic trainer (Patient not taking: Reported on 08/09/2021 ) etonogestrel (NEXPLANON) subdermal implant 68 mg 68 mg by SUBDERMAL route. No current facility-administered medications on file prior to visit. Social History Social History Tobacco Use Smoking status: Never Smokeless tobacco: Never Vaping Use Vaping Use: Never used Substance Use Topics Alcohol use: No Drug use: No EXAM: BP 118/76 (BP Site: Left Arm, BP Position: Sitting, BP Cuff Size: Regular Adult) Pulse 92 Resp 16 Wt 89.4 kg (197 lb) LMP 05/05/2019 (Exact Date) BMI 36.03 kg/m General Appearance: Well appearing, alert, in no acute distress, well-hydrated, well nourished.. Skin: Skin color, texture, turgor normal, no suspicious rashes or lesions. Head: Normocephalic, no masses, lesions, tenderness or abnormalities. Eyes: Anicteric sclera. Pupils are equally round and reactive to light. Extraocular movements are intact. . Oropharynx: Lips, mucosa, and tongue normal, teeth and gums normal, oropharynx normal. Neck: Supple, no adenopathy; thyroid symmetric, normal size, no bruits. Lungs: Lungs clear to auscultation. No wheezing, rhonchi, rales.. Heart: RRR without murmur, gallop, or rubs. No ectopy. Abdomen: Normal abdominal exam, Abdomen soft, non-tender. Bowel sounds normal. No masses, organomegaly. Extremities: No deformities, edema, skin discoloration, clubbing or cyanosis. Good capillary refill. Some bruising over the anterior right knee. Neurologic: Gait normal. Reflexes normal and symmetric. Sensation grossly intact.. Health Maintenance List MENINGOCOCCAL B: Consider based on risk(1 of 2 - Risk Bexsero 2-dose series) Never done HEPATITIS C SCREENING Never done HIV SCREENING Never done INFLUENZA(1) due on 01/17/2022 GC (GONORRHEA) SCREENING (18-24) due on 07/24/2022 CHLAMYDIA SCREENING (18-24) due on 07/24/2022 DTAP,TDAP,TD(7 - Td or Tdap) due on 12/12/2024 HEPATITIS B Completed HPV VACCINE Completed MENINGOCOCCAL CONJUGATE Completed COVID-19 VACCINE Completed ASSESSMENT/PLAN: 1. Fatigue, unspecified type - ICD9: 780.79, ICD10: R53.83 (primary diagnosis) We will get labs. Likely due to inconsistent sleep/work schedule. - CBC + DIFF - COMP METABOLIC PANEL - IRON + TIBC - FERRITIN BLD - TSH BLD - T4 FREE/FREE THYROX 2. Need for influenza vaccination - ICD9: V04.81, ICD10: Z23 - INFLUENZA VACCINE QUADRIVALENT 6 MO - 64 YRS IM 3. Special screening examination for viral disease - ICD9: V73.99, ICD10: Z11.59 - HEP C AB IA W/CONF SCRN 4. Screening for HIV (human immunodeficiency virus) - ICD9: V73.89, ICD10: Z11.4 - HIV 1 2 COMBO(AG/AB),WITH REFLEX TO DIFFERENTIATION 5. Tongue tied - ICD9: 750.0, ICD10: Q38.1 Referral to oral surgeon. - CONSULT TO DENTISTRY 6. Acute pain of right knee - ICD9: 719.46, ICD10: M25.561 Discussed with patient that she can continue Tylenol/ibuprofen. She can continue to ice the knee. She can also try some compression on the knee. Notify provider if no better or any worsening. Discussed treatment plan and patient voices understanding. Patient's questions answered appropriately. Medications and potential side effects were discussed and patient voices understanding. Return to the office as scheduled or as needed for worsening/no improvement. Nallely Castillo APRN.[employer]PERVIS[employer] This note was partially generated using [employer] voice recognition system. Note was reviewed for accuracy. There may be minor misspellings or grammar miscues with [employer] voice recognition. documented in this encounter [facility] 11-08-2021 Instructions Karrie Best - 11/08/2021 1:22 PM EDT ASSESSMENT/PLAN: 1. Sore throat - ICD9: 462, ICD10: J02.9 - suspect viral - Alere Strep Test negative, no culture pending - Discussed supportive care treatment with fluids, rest and analgesia. - STREP A MOLECULAR (POC) - COVID WITH FLUA+B, ROUTINE KENNETH [employer] student SORE THROAT INSTRUCTIONS SORE THROAT OVERVIEW - Sore throat is a common problem during childhood, and is usually the result of a bacterial or viral infection. Although sore throat usually resolves without complications, it sometimes requires treatment with an antibiotic. There are some less common causes of sore throat that are serious or even life-threatening. This topic will discuss the most common causes and treatments of sore throat in children, as well as the warning signs of more serious conditions. SORE THROAT CAUSES - The most likely cause of a child's sore throat depends upon the child's age, the season, and the geographic area. While viruses are the most common cause of sore throat, bacteria are another common cause. Bacteria and viruses are spread from one person to another through hand contact. Hands get contaminated when the sick individual touches their nose or mouth and then touches another person directly (lrlr-vb-[id number] contact) or indirectly ([id number], such as doorknob, telephone, toys). It is difficult to determine the cause of sore throat based upon symptoms alone; an examination and laboratory test are recommended in most cases Viruses - There are many viruses that can cause pain and swelling of the throat. The most common include viruses that cause sore throat as part of an upper respiratory infection, such as the common cold. Other viruses that cause sore throat include influenza, adenovirus, and Jennifer-Alcantara virus (the cause of mononucleosis). Symptoms - Symptoms that may occur with a viral infection can include a runny nose and congestion, irritation or redness of the eyes, cough, hoarseness, soreness in the roof of the mouth, a skin rash, or diarrhea. In addition, children with viral infections may have a fever and may feel miserable. A high fever does not necessarily mean that the child has a bacterial infection. Group A streptococcus - Group A streptococcus (GAS) is the name of the bacterium that causes strep throat. Although other bacteria can cause a sore throat, GAS is the most common bacterial cause; up to 30 percent of children with a sore throat will have GAS. Strep throat usually occurs during the winter and early spring, and is most common in school-age children and their younger siblings. Symptoms - Symptoms of strep throat in children older than 3 years often develop suddenly and include fever (temperature ?100.4 F or 38 C), headache, abdominal pain, nausea, and vomiting. Other symptoms can include swollen glands in the neck, white patches of pus in the back or sides of the throat, small red spots on the roof of the mouth, and swelling of the uvula. A cough and cold are not commonly seen in children with strep throat. Strep throat is uncommon in children younger than age 2 to 3 years. However, GAS infection can occur in younger children, and may cause a runny nose and congestion that is prolonged, low-grade fever (?101 F or 38.3 C), and tender glands in the neck. Infants younger than 1 year may be fussy and have a decreased appetite and low-grade fever. SORE THROAT TREATMENT - The treatment of sore throat depends upon the cause; strep throat is treated with an antibiotic while viral pharyngitis is treated with rest, pain relievers, and other measures to reduce symptoms. Strep throat - Strep throat is usually treated with an antibiotic, such as penicillin, or an antibiotic similar to penicillin (eg, amoxicillin). Children who are allergic to penicillin will be given an alternate antibiotic. The antibiotic is usually given in pill or liquid form two or three times per day. A one-time injection is also available, and may be recommended if a child is unwilling to take an oral medication. After completing 24 hours of antibiotics, the child is no longer contagious and may return to school. Symptoms usually improve within 1 to 2 days. However, it is important for the child to finish the entire course of treatment (usually 10 days). If a child does not begin to improve or worsens within 3 days, the child should be reevaluated. Throat pain can be treated with a non-prescription pain medication, if needed. (See 'Pain medications' below.) In addition, parents should monitor their child for dehydration, which can develop if the child is not willing to drink or eat due to a sore throat. (See 'Monitor for dehydration' below.) Viral throat pain - Sore throat caused by viral infections usually last 4 to 5 days. During this time, treatments to reduce pain may be helpful but will not help to eliminate the virus. Antibiotics do not improve throat pain caused by a virus and are not recommended. A child with a viral infection is usually allowed to return to school when there has been no fever for 24 hours and the child feels well enough to pay attention. Pain medications - Throat pain can be treated with a mild pain reliever such as acetaminophen (Tylenol ) or a non-steroidal anti-inflammatory agent such as ibuprofen (Motrin ). These medications should be dosed according to weight, not age. Aspirin is not recommended for children <18 years due to the risk of a potentially serious condition known as Kenny syndrome. Monitor for dehydration - Some children with a sore throat are reluctant to drink or eat due to pain. Drinking less fluid can lead to dehydration. To reduce the risk of dehydration, parents can offer warm or cold liquids. (See 'Other interventions' below.) Signs and symptoms of mild dehydration include a slightly dry mouth, increased thirst, and decreased urine output (one wet diaper or void in six hours). Signs of moderate or severe dehydration include decreased urine output (less than one wet diaper or void in six hours), lack of tears when crying, dry mouth, and sunken eyes. A child who is moderately or severely dehydrated should be evaluated by a healthcare provider as soon as possible to determine if treatment is needed. Oral rinses- Salt-water gargles are an old stand-by for relief of throat pain. It is not clear if this treatment is effective, but it is unlikely to be harmful. Most recipes suggest 1/4 to 1/2 teaspoon of salt per cup (8 ounces) of warm water. The water should be gargled and then spit out (not swallowed). Children younger than six to eight years are not able to gargle properly. An oral rinse composed of equal parts of diphenhydramine (Benadryl liquid) and Maalox (magnesium hydroxide, aluminum hydroxide, and simethicone) may be helpful for pain caused by a sore mouth or ulcers in the mouth. Children older than six to eight years may swish and spit (not swallow) the mixture. Sprays - Sprays containing topical anesthetics are available to treat sore throat. However, such sprays are no more effective than sucking on hard candy. In addition, a common anesthetic ingredient, benzocaine, can cause allergic reactions. We do not recommend throat sprays for children. Lozenges - A variety of medicated throat lozenges are available to relieve dryness or pain. However, it is not clear that lozenges work any better than hard candy. We do not recommend throat lozenges for children, especially children younger than 3 to 4 years, who can choke. Sucking on hard candy may provide some relief for children older than 3 to 4 years, who are not at risk for choking. Other interventions - Other interventions include sipping warm beverages (eg, honey or lemon tea, chicken soup), cold beverages, or eating cold or frozen desserts (eg, ice cream, popsicles). These treatments are safe for children. Honey should not be given to children younger than 12 months due to the potential risk of botulism poisoning. Alternative therapies - Health food stores, vitamin outlets, and Internet Web sites offer alternative treatments for relief of sore throat pain. We do not recommend these treatments due to the risks of contamination with pesticides/herbicides, inaccurate labeling and dosing information, and a lack of studies showing that these treatments are safe and effective. SORE THROAT PREVENTION - Hand washing is an essential and highly effective way to prevent the spread of infection. Hands should be wet with water and plain soap, and rubbed together for 15 to 30 seconds. Special attention should be paid to the fingernails, between the fingers, and the wrists. Hands should be rinsed thoroughly, and dried with a single use towel. Alcohol-based hand rubs are a good alternative for disinfecting hands if a sink is not available. Hand rubs should be spread over the entire surface of hands, fingers, and wrists until dry, and may be used several times. These rubs can be used repeatedly without skin irritation or loss of effectiveness. Hand rubs are available as a liquid or wipe in small, portable sizes that are easy to carry in a pocket or handbag. When a sink is available, visibly soiled hands should be washed with soap and water. Hands should be washed after coughing, blowing the nose or sneezing. While it is not always possible to limit contact with a person who is sick, avoiding touching the eyes, nose, or mouth after direct contact can help to prevent the spread of infection. In addition, tissues should be used to cover the mouth when sneezing or coughing. These used tissues should be disposed of promptly. Sneezing/coughing into the sleeve of one's clothing (at the inner elbow) is another means of containing sprays of saliva and secretions and has the advantage of not contaminating the hands. WHEN TO SEEK HELP - Parents of a child with throat pain and one or more of the following should contact their healthcare provider immediately: Difficulty swallowing or breathing Excessive drooling in an or young child Temperature ?101 F or 38.3 C Swelling of the neck Child is unable or unwilling to drink or eat Voice sounds muffled Child has a stiff neck or difficulty opening the mouth WHERE TO GET MORE INFORMATION - Your child's healthcare provider is the best source of information for questions and concerns related to your child's medical problem. This article will be updated as needed every four months on our web site ([email or web address]). Information below was obtained from Up to date Last literature review version 19.2: September 2010 This topic last updated: January 03, 2010 documented in this encounter [facility] 11-08-2021 History of Present illness Narrative Monica Verduzco is a 21 year old female who presents with a sore throat for 3 days. Rates pain 7/10 that worsens with swallowing. Reports that she is still able to tolerate liquids. Denies fever, chills, cough, ear pain, or shortness of breath. Reports mild congestion. Denies known exposure to sick persons. Denies taking any medications for symptoms. The history is provided by the patient. No data modeler was used. Sore Throat This is a new problem. The current episode started in the past 7 days. The problem has been gradually worsening. There has been no fever. The pain is at a severity of 7/10. Associated symptoms include congestion (mild). Pertinent negatives include no abdominal pain, coughing, diarrhea, ear pain, headaches, hoarse voice, shortness of breath, trouble swallowing or vomiting. Review of Systems Constitutional: Negative for chills, fever and malaise/fatigue. HENT: Positive for congestion (mild) and sore throat. Negative for ear pain, hoarse voice and trouble swallowing. Respiratory: Negative for cough, shortness of breath and wheezing. Cardiovascular: Negative for chest pain and palpitations. Gastrointestinal: Negative for abdominal pain, constipation, diarrhea, nausea and vomiting. Skin: Negative for rash. Neurological: Negative for headaches. BP 122/64 Pulse 101 Temp 36.7 C (98 F) Resp 16 Wt 89.5 kg (197 lb 6.4 oz) SpO2 98% BMI 36.10 kg/m PAST MEDICAL HISTORY Diagnosis Date Allergic rhinitis due to dust mite 03/18/2019 Bilateral bunions 11/01/2016 S/p bunionectomy [facility] COVID-19 virus infection 05/27/202105/2021 Depression, major, single episode, mild (HCC) 09/15/2018 Encounter for gynecological examination 06/28/2020 [facility] (generalized anxiety disorder) 09/15/2018 Nexplanon insertion 04/19/2021 Pollen-food allergy 03/18/2019 Seasonal allergic rhinitis due to pollen 03/18/2019 Seasonal allergies PAST SURGICAL HISTORY Procedure Laterality Date CORRECTION OF BUNION Bilateral 11/02 left foot 05/04 right foot ALLERGIES Kiwi, Banana, Celery, Grass Pollen, Seasonal Allergies, and Tree And Shrub Pollen MEDICATIONS olopatadine (PATANOL) 0.1 % ophthalmic solution Use 1 Drop in both eyes twice daily for 30 days. cetirizine (ZYRTEC) 10 mg tablet TAKE 1 TABLET BY MOUTH AT BEDTIME NEEDED FOR ITCHING,SNEEZING OR RUNNY NOSE montelukast (SINGULAIR) 10 mg tablet Take 1 tablet by mouth daily at bedtime. fexofenadine (CLAU) 180 mg tablet Take 1 tablet by mouth once daily. fluticasone (FLONASE) 50 mcg/actuation nasal spray Use 2 Sprays in each nostril once daily. sertraline (ZOLOFT) 100 mg tablet Take 1 tablet by mouth once daily. ibuprofen (MOTRIN) 800 mg tablet Take 1 tablet by mouth every 8 hours as needed for pain. Take with food. etonogestrel (NEXPLANON) subdermal implant 68 mg 68 mg by SUBDERMAL route. boric acid vaginal suppository 600 mg (CPD) Use 1 Suppository vaginally as directed. At bedtime x 14 nights then 1-2 times per week as needed. Unwrap and insert as directed. fluconazole (DIFLUCAN) 150 mg tablet TAKE ONE TABLET BY MOUTH, AND REPEAT DOSE AFTER 72 HOURS. etonogestrel (NEXPLANON) subdermal implant 68 mg 1 Each by SUBDERMAL route as directed. EPINEPHrine (EPIPEN 2-ORIANA) 0.3 mg/0.3 mL auto-injector Inject 0.3 mL intramuscularly as needed. For allergic reaction.Seek emergent medical care immediately after use.Disp:1 2-pakw/epic trainer FAMILY HISTORY Problem Relation Age of Onset None Other Diabetes Mother Kidney Disease Mother Prostate Cancer No Family History Colon Cancer No Family History Breast Cancer No Family History Ovarian cancer No Family History Coronary Artery Disease No Family History Hypertension No Family History Hyperlipidemia No Family History Seizures No Family History Stroke No Family History Thyroid No Family History Social History Tobacco Use Smoking status: Never Smoker Smokeless tobacco: Never Used Vaping Use Vaping Use: Never used Substance Use Topics Alcohol use: No Drug use: No Objective Physical Exam Constitutional: Appearance: Normal appearance. HENT: Right Ear: Tympanic membrane, ear canal and external ear normal. Left Ear: Tympanic membrane, ear canal and external ear normal. Nose: Nose normal. Mouth/Throat: Mouth: Mucous membranes are moist. Pharynx: Uvula midline. Posterior oropharyngeal erythema present. No oropharyngeal exudate. Cardiovascular: Rate and Rhythm: Normal rate and regular rhythm. Pulmonary: Effort: Pulmonary effort is normal. No respiratory distress. Breath sounds: Normal breath sounds. Neurological: Mental Status: She is alert and oriented to person, place, and time. ASSESSMENT/PLAN: 1. Sore throat - ICD9: 462, ICD10: J02.9 - suspect viral - Alere Strep Test negative, no culture pending - Discussed supportive care treatment with fluids, rest and analgesia. - STREP A MOLECULAR (POC) - COVID WITH FLUA+B, ROUTINE KENNETH Griggs student TEACHING PROVIDER (Physician/PA/CIRCUS SUPERVISOR) NOTE OF PERSONAL INVOLVEMENT IN CARE: I have personally seen and examined the patient and performed the medical decision-making components. I have reviewed the Advanced Practice Registered Nurse (CIRCUS SUPERVISOR) Student's documentation and verified the findings in the note as written. Any additions or changes are noted in bold/italics. Signature: Gunjan Collins Date: 11/08/2021 Time: 2:50 PM documented in this encounter [facility] 10-05-2021 Miscellaneous Notes Please check at [facility] - for insurance coverage and cost if insurance does not cover and notify patient. Veronica Milan APRN.HARIS [facility] pharmacy called. States they are not able to compound medications. A clean room is now required and since they have carpet they can no longer compound medications. Are you needing these compounded? Do you want us to check with [facility] retail pharmacy? Boric acid prescribed. Veronica Milan APRN.HARIS documented in this encounter [facility] 10-02-2021 Miscellaneous Notes Pt returned call and stated that yes she is having yeast infection sxs. She reports that she is having itching, cottage cheese like discharge, swelling. Pt has had this for the past couple days. Pt also requesting a refill on below pended medication as she stated she always has to use the second dose. Shannon Chavira LPN Left message for patient to call office. Is patient experiencing symptoms of a yeast infections? Jenna Escobar RN documented in this encounter [facility] 09-12-2021 Instructions Veronica Milan APRN.HARIS - 09/12/2021 1:10 PM EDT Women's Health probiotic RepHresh Boric acid Minimizing irritation of the vulva (area around the vagina) Wear white cotton underwear. Avoid synthetic fabrics and tight clothing. Sleep wearing shorts or pajama bottoms without underwear. Shower as soon as possible after exercise. Avoid clothing detergents and soaps with perfumes or dyes. Use warm (not hot) water to wash the vulva and if you use soap use a product designed for sensitive skin (like Dove or Cetaphil). Do not douche or use creams/powders in the vulvar area unless instructed by your physician. If you must douche, use only plain warm water. Make sure the vulva is dry before dressing by patting dry with a towel. Avoid vigorous rubbing with the towel. You may want to use the blow dryer (on the cool setting only!) on the vulva. The most important way to let your body heal is by avoiding scratching. Many patients find it difficult to avoid scratching at night when they are most aware of the itchiness. You can try taking Benadryl just before bedtime. Some women find it helpful to wear cotton gloves to bed to avoid scratching at night. documented in this encounter [facility] 09-12-2021 History of Present illness Narrative Mary Verduzco is a 21 year old female who presents for problem visit follow-up for yeast infection. HPI: Treated for yeast infection at with 2 doses of Diflucan and is currently asymptomatic. Is taking cephalexin after SI per urologist. Also taking pyridium before and after SI. Is using cleansing wipes and Vagisil feminine spray. Wears legging most days. Taking Women's Health probiotic. Considering boric acid. Uses laundry detergent with fragrance. OB History T0 L0 SAB0 IAB0 Ectopic0 Multiple0 Live Births0 Reading Assistant History LMP: 05/05/2019 (Exact Date), Implant Age at Menarche: Age at First : Age at Menopause: Reading Assistant History Comments: Sexual Activity: Yes; No partner data on record Contraception: Condom, Implant PAST MEDICAL HISTORY Diagnosis Date Allergic rhinitis due to dust mite 03/18/2019 Bilateral bunions 11/01/2016 S/p bunionectomy Brody COVID-19 virus infection 05/27/202105/2021 Depression, major, single episode, mild (HCC) 09/15/2018 Encounter for gynecological examination 06/28/2020 Seeing [facility] CAMRON (generalized anxiety disorder) 09/15/2018 Nexplanon insertion 04/19/2021 Pollen-food allergy 03/18/2019 Seasonal allergic rhinitis due to pollen 03/18/2019 Seasonal allergies PAST SURGICAL HISTORY Procedure Laterality Date CORRECTION OF BUNION Bilateral 11/02 left foot 05/04 right foot FAMILY HISTORY Problem Relation Age of Onset None Other Diabetes Mother Kidney Disease Mother Prostate Cancer No Family History Colon Cancer No Family History Breast Cancer No Family History Ovarian cancer No Family History Coronary Artery Disease No Family History Hypertension No Family History Hyperlipidemia No Family History Seizures No Family History Stroke No Family History Thyroid No Family History Social History Tobacco Use Smoking status: Never Smoker Smokeless tobacco: Never Used Vaping Use Vaping Use: Never used Substance Use Topics Alcohol use: No Drug use: No Current Outpatient Medications Medication Sig cetirizine (ZYRTEC) 10 mg tablet TAKE 1 TABLET BY MOUTH AT BEDTIME NEEDED FOR ITCHING,SNEEZING OR RUNNY NOSE montelukast (SINGULAIR) 10 mg tablet Take 1 tablet by mouth daily at bedtime. fexofenadine (CLAU) 180 mg tablet Take 1 tablet by mouth once daily. fluticasone (FLONASE) 50 mcg/actuation nasal spray Use 2 Sprays in each nostril once daily. sertraline (ZOLOFT) 100 mg tablet Take 1 tablet by mouth once daily. ibuprofen (MOTRIN) 800 mg tablet Take 1 tablet by mouth every 8 hours as needed for pain. Take with food. etonogestrel (NEXPLANON) subdermal implant 68 mg 1 Each by SUBDERMAL route as directed. EPINEPHrine (EPIPEN 2-ORIANA) 0.3 mg/0.3 mL auto-injector Inject 0.3 mL intramuscularly as needed. For allergic reaction.Seek emergent medical care immediately after use.Disp:1 2-pakw/epic trainer (Patient not taking: Reported on 08/09/2021 ) etonogestrel (NEXPLANON) subdermal implant 68 mg 68 mg by SUBDERMAL route. No current facility-administered medications for this visit. Allergies As of Date: 09/12/2021 Allergen Noted Reaction KIWI 07/02/2018 Other: See Comments BANANA 03/18/2019 Itching CELERY 03/23/2019 Itching GRASS POLLEN 06/28/2020 Unknown SEASONAL ALLERGIES 03/18/2019 Unknown TREE AND SHRUB POLLEN 06/28/2020 Unknown Fully Assessed 08/09/2021 REVIEW OF SYSTEMS Allergies and current medication updated:Yes EXAM: BP 110/64 Wt 199 lb (90.3kg) LMP 05/05/2019 GENERAL: pleasant, AA female in no apparent distress CHEST: Normal inspiratory effort NEURO: alert and oriented x3,exam grossly non-focal ASSESSMENT/PLAN: 1. Recurrent vaginitis - ICD9: 616.10, ICD10: N76.0 - reinforced vulvar hygiene instructions. Recommend discontinuing use of OTC feminine hygiene products and stretchy leggings and to use hypoallergenic laundry products. Encouraged her to allow body to regulate the vaginal pH as intended. Women's Health probiotic RepHresh Boric acid if desired. Follow-up as needed. Veronica Milan APRN.HARIS I spent a total of 25 minutes on the date of the service which included preparing to see the patient, veir-as-oano patient care, completing clinical documentation, obtaining and/or reviewing separately obtained history, performing a medically appropriate examination and counseling and educating the patient/family/caregiver. documented in this encounter [facility] 08-09-2021 History of Present illness Narrative Chief Complaint Patient presents with: Physical HPI Mary Verduzco is a 21 year old female who presents here today for physical. Patient with hx of depression/anxiety, allergies and those a below. Denies specific concerns today. Last 6 Encounter Wt Readings: Date: Wt: 08/09/2021 89.8 kg (198 lb) (97 %, Z= 1.92)* 07/24/2021 90.9 kg (200 lb 6.4 oz) (97 %, Z= 1.96)* 05/23/2021 90.7 kg (200 lb) (97 %, Z= 1.96)* 04/19/2021 93 kg (205 lb) (98 %, Z= 2.03)* 04/05/2021 91.2 kg (201 lb) (98 %, Z= 1.97)* 06/28/2020 84.8 kg (187 lb) (96 %, Z= 1.80)* Past medical history, appointments, medications, allergies reviewed. Previous Medical History PAST MEDICAL HISTORY Diagnosis Date Allergic rhinitis due to dust mite 03/18/2019 Bilateral bunions 11/01/2016 S/p bunionectomy Brody COVID-19 virus infection 05/27/202105/2021 Depression, major, single episode, mild (HCC) 09/15/2018 Encounter for gynecological examination 06/28/2020 Seeing [facility] CAMRON (generalized anxiety disorder) 09/15/2018 Nexplanon insertion 04/19/2021 Pollen-food allergy 03/18/2019 Seasonal allergic rhinitis due to pollen 03/18/2019 Seasonal allergies Previous Surgical History PAST SURGICAL HISTORY Procedure Laterality Date CORRECTION OF BUNION Bilateral 11/02 left foot 05/04 right foot Family History FAMILY HISTORY Problem Relation Age of Onset None Other Diabetes Mother Kidney Disease Mother Prostate Cancer No Family History Colon Cancer No Family History Breast Cancer No Family History Ovarian cancer No Family History Coronary Artery Disease No Family History Hypertension No Family History Hyperlipidemia No Family History Seizures No Family History Stroke No Family History Thyroid No Family History Patient Allergies ALLERGIES Allergen Reactions Kiwi Other: See Comments Throat becomes itchy Banana Itching Pollen food allergy Celery Itching Pollen food allergy. Itching mouth Grass Pollen Unknown Seasonal Allergies Unknown DUST MITES, TREES, GRASSES, WEEDS AND RAGWEED VERIFIED BY SKIN TESTING Tree And Shrub Poll* Unknown Current Medications Current Outpatient Medications on File Prior to Visit Medication Sig fexofenadine (CLAU) 180 mg tablet Take 1 tablet by mouth once daily. fluticasone (FLONASE) 50 mcg/actuation nasal spray Use 2 Sprays in each nostril once daily. sertraline (ZOLOFT) 100 mg tablet Take 1 tablet by mouth once daily. ibuprofen (MOTRIN) 800 mg tablet Take 1 tablet by mouth every 8 hours as needed for pain. Take with food. etonogestrel (NEXPLANON) subdermal implant 68 mg 1 Each by SUBDERMAL route as directed. azelastine (ASTELIN) 0.1% nasal spray Use 2 Sprays in each nostril twice daily as needed. (Patient not taking: Reported on 07/24/2021 ) cetirizine (ZYRTEC) 10 mg tablet TAKE 1 TABLET BY MOUTH AT BEDTIME NEEDED FOR ITCHING,SNEEZING OR RUNNY NOSE (Patient not taking: Reported on 07/24/2021 ) EPINEPHrine (EPIPEN 2-ORIANA) 0.3 mg/0.3 mL auto-injector Inject 0.3 mL intramuscularly as needed. For allergic reaction.Seek emergent medical care immediately after use.Disp:1 2-pakw/epic trainer (Patient not taking: Reported on 08/09/2021 ) etonogestrel (NEXPLANON) subdermal implant 68 mg 68 mg by SUBDERMAL route. No current facility-administered medications on file prior to visit. Social History Social History Tobacco Use Smoking status: Never Smoker Smokeless tobacco: Never Used Substance Use Topics Alcohol use: No Drug use: No Review of Symptoms REVIEW OF SYSTEMS GENERAL: +fatigue No weight loss, malaise or fevers HEENT: No changes in hearing or vision, no nose bleeds or other nasal problems NECK: Negative for lumps, goiter, pain and significant neck swelling RESPIRATORY: Negative for cough, hemoptysis, wheezing, COPD, dyspnea or shortness of breath CARDIOVASCULAR: Negative for chest pain, leg swelling, hypertension, CHF or palpitations GI: Negative for abdominal discomfort, blood in stools or black stools, change in bowel habit, heart burn, nausea, vomiting : No history of dysuria, frequency or incontinence MUSCULOSKELETAL: Negative for joint pain or swelling, back pain or muscle pain SKIN: Negative for lesions, rash, and itching PSYCH: Negative for sleep disturbance, mood disorder and recent psychosocial stressors HEMATOLOGY/LYMPHOLOGY: Negative for prolonged bleeding, bruising easily or swollen nodes ENDOCRINE: Negative for cold or heat intolerance, polyuria, polydipsia and goiter NEURO: No history of headaches, syncope, paralysis, seizures or tremors EXAM: BP 106/72 (BP Site: Left Arm, BP Position: Sitting, BP Cuff Size: Large Adult) Pulse 96 Temp 36.6 C (97.9 F) Resp 18 Ht 157.5 cm (5' 2 ) Wt 89.8 kg (198 lb) LMP 05/05/2019 (Exact Date) BMI 36.21 kg/m General Appearance: Well appearing, alert, in no acute distress, well-hydrated, well nourished. and Overweight. Skin: Skin color, texture, turgor normal, no suspicious rashes or lesions. Head: Normocephalic, no masses, lesions, tenderness or abnormalities. Eyes: Anicteric sclera. Pupils are equally round and reactive to light. Extraocular movements are intact. . Ears: External ears normal, canals clear. Nose/Sinuses: deferred-mask. Oropharynx: deferred- mask. Neck: Supple, no adenopathy; thyroid symmetric, normal size, no bruits. Lungs: Lungs clear to auscultation. No wheezing, rhonchi, rales.. Heart: RRR without murmur, gallop, or rubs. No ectopy. Abdomen: Normal abdominal exam, Abdomen soft, non-tender. Bowel sounds normal. No masses, organomegaly. Extremities: No deformities, edema, skin discoloration, clubbing or cyanosis. Good capillary refill. . Peripheral Pulses: Normal. Neurologic: Gait normal. Reflexes normal and symmetric. Sensation grossly intact.. Health Maintenance List MENINGOCOCCAL B: Consider based on risk(1 of 2 - Risk Bexsero 2-dose series) Never done DEPRESSION SCREENING due on 07/02/2019 HEPATITIS C SCREENING Never done HIV SCREENING Never done INFLUENZA(1) due on 01/17/2021 COVID-19 VACCINE(3 - Booster for Pfizer series) due on 05/24/2021 GC (GONORRHEA) SCREENING (18-24) due on 07/24/2022 CHLAMYDIA SCREENING (18-24) due on 07/24/2022 DTAP,TDAP,TD(7 - Td or Tdap) due on 12/12/2024 HPV VACCINE Completed MENINGOCOCCAL CONJUGATE Completed Data reviewed ASSESSMENT/PLAN: 1. Well adult exam - ICD9: V70.0, ICD10: Z00.00 (primary diagnosis) - Counseled on healthy diet and regular exercise - Calcium intake with supplements or by diet of 1000 mg/day for under 50, 4852-9018 mg/day for 50+ - Discussed need and benefit for weight loss. BMI 36.21 kg/(m^2) 2. Depression, major, single episode, mild (HCC) - ICD9: 296.21, ICD10: F32.0 stable - COMP METABOLIC PANEL 3. CAMRON (generalized anxiety disorder) - ICD9: 300.02, ICD10: F41.1 stable 4. Seasonal allergies - ICD9: 477.9, ICD10: J30.2 stable 5. Seasonal allergic rhinitis due to pollen - ICD9: 477.0, ICD10: J30.1 stable 6. Allergic rhinitis due to dust mite - ICD9: 477.8, ICD10: J30.89 stable 7. Fatigue, unspecified type - ICD9: 780.79, ICD10: R53.83 Check: - TSH BLD - CBC + DIFF - IRON + TIBC - VITAMIN D 25 HYDROXY - VITAMIN B12 BLOOD - COMP METABOLIC PANEL 8. Weight gain - ICD9: 783.1, ICD10: R63.5 Check: - TSH BLD - CBC + DIFF - IRON + TIBC 9. Encounter for lipid screening for cardiovascular disease - ICD9: V77.91, V81.2, ICD10: Z13.220, Z13.6 - LIPID PANEL, NONFASTING 10. Screening for diabetes mellitus - ICD9: V77.1, ICD10: Z13.1 - HGB A1C 11. Need for hepatitis C screening test - ICD9: V73.89, ICD10: Z11.59 - HEP C AB IA W/CONF SCRN 12. Screening for HIV (human immunodeficiency virus) - ICD9: V73.89, ICD10: Z11.4 - HIV 1 2 COMBO(AG/AB),WITH REFLEX TO DIFFERENTIATION 13. Frequent UTI - ICD9: 599.0, ICD10: N39.0 Continue urology management F/u 6 months routine. Nevaeh Hennessy PA-C documented in this encounter [facility] Recurrent vaginitis- Primary Vaginitis and vulvovaginitis, unspecified [facility] Diagnosis Recurrent vaginitis- Primary Vaginitis and vulvovaginitis, unspecified [facility] Diagnosis Sore throat- Primary Acute pharyngitis [facility] Diagnosis Fatigue, unspecified type- Primary Need for influenza vaccination Need for prophylactic vaccination and inoculation against influenza Special screening examination for viral disease Special screening examination for unspecified viral disease Screening for HIV (human immunodeficiency virus) Special screening examination for other specified viral diseases Tongue tied Tongue tie Acute pain of right knee [facility] Diagnosis Tongue tied- Primary Tongue tie [facility] Diagnosis Elevated alkaline phosphatase level- Primary Other nonspecific abnormal serum enzyme levels [facility] Diagnosis Elevated alkaline phosphatase level- Primary Other nonspecific abnormal serum enzyme levels [facility] Diagnosis Personal history of arthritis- Primary [facility] Diagnosis Vagina itching- Primary Pruritus of genital organs Screen for STD (sexually transmitted disease) Screening examination for venereal disease documented in this encounter [facility] note* Diagnosis Encounter for gynecological examination with abnormal finding- Primary Routine gynecological examination Vulvovaginal itching Pruritus of genital organs documented in this encounter [facility] note* Diagnosis Depression, major, single episode, mild (HCC)- Primary Major depressive disorder, single episode, mild CAMRON (generalized anxiety disorder) Generalized anxiety disorder documented in this encounter [facility] note* Diagnosis Wellness examination- Primary Acute cystitis without hematuria Acute cystitis Pain of left lower extremity Furuncle Carbuncle and furuncle of unspecified site documented in this encounter [facility] note* Diagnosis Acne vulgaris- Primary Other acne documented in this encounter [facility] note* Diagnosis Anxiety with depression- Primary Homelessness Lack of housing documented in this encounter [facility] note* Diagnosis Anxiety with depression documented in this encounter [facility] note* Diagnosis Tinea pedis, unspecified laterality- Primary documented in this encounter [facility] note* Diagnosis Anxiety with depression- Primary documented in this encounter [facility] for referral (narrative)* Diagnostic Procedure Only (Routine) - Pending Review Specialty Diagnoses / Procedures Referred By Chad lee Referred To Contact MOLECULAR & FUNCTIONAL IMAGING Diagnoses Elevated alkaline phosphatase level Procedures NM BONE WHOLE BODY BONE &/JOINT IMAGING WHOLE BODY Nallely Castillo APRN.SUPERVISOR [employer]ITT[employer] [address] [place] [address] Molecular & Functional Imaging [address] [place] [address] Referral ID Status Reason Start Date Expiration Date Visits Requested Visits Authorized [id number] Pending Review Auto-Generat ed Referral 2 05/30/2023 1 1 [facility] Summary Purpose Family History No Family History Records FoundNo Family History Records Found Advance Directives No Advanced Directives Records FoundNo Advanced Directives Records Found Health Concerns Infection Onset Date Last Indicated Resolved Time COVID-19 Rule-Out 11/08/2021 11/08/2021 Reason for Referral Specialty Diagnoses / Procedures Referred By Contsamia t Referred To Contact Dentistry Diagnoses Tongue tied Procedures CONSULT TO DENTISTRY OFFICE/OUTPATIENT [facility] 60-74 MINUTES Nallely Castillo APRN.SUPERVISOR [employer]ITT[employer] [address] [place] [address] Referral ID Status Reason Start Date Expiration Date Visits Requested Visits Authorized [id number] Pending Review PCP Requested Referral 2 03/12/2023 1 1 Specialty Diagnoses / Procedures Referred By Contac t Referred To Contact Ent - Otolaryngology Diagnoses Tongue tied Procedures CONSULT TO ENT OFFICE/OUTPATIENT [facility] 60-74 MINUTES Ross Cortez MD [address] [place] [address] Referral ID Status Reason Start Date Expiration Date Visits Requested Visits Authorized [id number] Pending Review PCP Requested Referral 03/20/2022 03/20/2023 1 1 Specialty Diagnoses / Procedures Referred By Contac t Referred To Contact Diagnoses Acne vulgaris Nallely Castillo APRN.SUPERVIS[employer] [address] [place] [address] Referral ID Status Reason Start Date Expiration Date Visits Re quested Visits Authorized [id number] Closed 1 1 Additional Source Comments INFORMATION SOURCE (unrecogn ized section and content) DATE CREATED AUTHOR AUTHOR'S ORGANIZ ATION 06/03/2023 [facility] Source Comments (unrecognize d section and content) In the event this informatio n is protected by the Federal Confidentiality of Alcohol and Drug Abuse Patient Records regulations: The Federal rules restrict any use of the information to criminally investigate or prosecute any alcohol or drug abuse patient.[facility] the event this information is protected by the Federal Confidentiality of Alcohol and Drug Abuse Patient Records regulations: The Federal rules restrict any use of the information to criminally investigate or prosecute any alcohol or drug abuse patient.[facility] the event this information is protected by the Federal Confidentiality of Alcohol and Drug Abuse Patient Records regulations: The Federal rules restrict any use of the information to criminally investigate or prosecute any alcohol or drug abuse patient.[facility] the event this information is protected by the Federal Confidentiality of Alcohol and Drug Abuse Patient Records regulations: The Federal rules restrict any use of the information to criminally investigate or prosecute any alcohol or drug abuse patient.[facility] the event this information is protected by the Federal Confidentiality of Alcohol and Drug Abuse Patient Records regulations: The Federal rules restrict any use of the information to criminally investigate or prosecute any alcohol or drug abuse patient.[facility] the event this information is protected by the Federal Confidentiality of Alcohol and Drug Abuse Patient Records regulations: The Federal rules restrict any use of the information to criminally investigate or prosecute any alcohol or drug abuse patient.[facility] the event this information is protected by the Federal Confidentiality of Alcohol and Drug Abuse Patient Records regulations: The Federal rules restrict any use of the information to criminally investigate or prosecute any alcohol or drug abuse patient.[facility] the event this information is protected by the Federal Confidentiality of Alcohol and Drug Abuse Patient Records regulations: The Federal rules restrict any use of the information to criminally investigate or prosecute any alcohol or drug abuse patient.[facility] the event this information is protected by the Federal Confidentiality of Alcohol and Drug Abuse Patient Records regulations: The Federal rules restrict any use of the information to criminally investigate or prosecute any alcohol or drug abuse patient.[facility] the event this information is protected by the Federal Confidentiality of Alcohol and Drug Abuse Patient Records regulations: The Federal rules restrict any use of the information to criminally investigate or prosecute any alcohol or drug abuse patient.[facility] the event this information is protected by the Federal Confidentiality of Alcohol and Drug Abuse Patient Records regulations: The Federal rules restrict any use of the information to criminally investigate or prosecute any alcohol or drug abuse patient.[facility] the event this information is protected by the Federal Confidentiality of Alcohol and Drug Abuse Patient Records regulations: The Federal rules restrict any use of the information to criminally investigate or prosecute any alcohol or drug abuse patient.[facility] the event this information is protected by the Federal Confidentiality of Alcohol and Drug Abuse Patient Records regulations: The Federal rules restrict any use of the information to criminally investigate or prosecute any alcohol or drug abuse patient.[facility] the event this information is protected by the Federal Confidentiality of Alcohol and Drug Abuse Patient Records regulations: The Federal rules restrict any use of the information to criminally investigate or prosecute any alcohol or drug abuse patient.[facility] HospitalIn the event this information is protected by the Federal Confidentiality of Alcohol and Drug Abuse Patient Records regulations: The Federal rules restrict any use of the information to criminally investigate or prosecute any alcohol or drug abuse patient.[facility] HospitalIn the event this information is protected by the Federal Confidentiality of Alcohol and Drug Abuse Patient Records regulations: The Federal rules restrict any use of the information to criminally investigate or prosecute any alcohol or drug abuse patient.[facility] HospitalIn the event this information is protected by the Federal Confidentiality of Alcohol and Drug Abuse Patient Records regulations: The Federal rules restrict any use of the information to criminally investigate or prosecute any alcohol or drug abuse patient.[facility]In the event this information is protected by the Federal Confidentiality of Alcohol and Drug Abuse Patient Records regulations: The Federal rules restrict any use of the information to criminally investigate or prosecute any alcohol or drug abuse patient.[facility]In the event this information is protected by the Federal Confidentiality of Alcohol and Drug Abuse Patient Records regulations: The Federal rules restrict any use of the information to criminally investigate or prosecute any alcohol or drug abuse patient.[facility] HospitalIn the event this information is protected by the Federal Confidentiality of Alcohol and Drug Abuse Patient Records regulations: The Federal rules restrict any use of the information to criminally investigate or prosecute any alcohol or drug abuse patient.[facility]In the event this information is protected by the Federal Confidentiality of Alcohol and Drug Abuse Patient Records regulations: The Federal rules restrict any use of the information to criminally investigate or prosecute any alcohol or drug abuse patient.[facility]In the event this information is protected by the Federal Confidentiality of Alcohol and Drug Abuse Patient Records regulations: The Federal rules restrict any use of the information to criminally investigate or prosecute any alcohol or drug abuse patient.[facility] HospitalIn the event this information is protected by the Federal Confidentiality of Alcohol and Drug Abuse Patient Records regulations: The Federal rules restrict any use of the information to criminally investigate or prosecute any alcohol or drug abuse patient.[facility] HospitalIn the event this information is protected by the Federal Confidentiality of Alcohol and Drug Abuse Patient Records regulations: The Federal rules restrict any use of the information to criminally investigate or prosecute any alcohol or drug abuse patient.[facility] HospitalIn the event this information is protected by the Federal Confidentiality of Alcohol and Drug Abuse Patient Records regulations: The Federal rules restrict any use of the information to criminally investigate or prosecute any alcohol or drug abuse patient.[facility] HospitalIn the event this information is protected by the Federal Confidentiality of Alcohol and Drug Abuse Patient Records regulations: The Federal rules restrict any use of the information to criminally investigate or prosecute any alcohol or drug abuse patient.[facility] HospitalIn the event this information is protected by the Federal Confidentiality of Alcohol and Drug Abuse Patient Records regulations: The Federal rules restrict any use of the information to criminally investigate or prosecute any alcohol or drug abuse patient.[facility] HospitalIn the event this information is protected by the Federal Confidentiality of Alcohol and Drug Abuse Patient Records regulations: The Federal rules restrict any use of the information to criminally investigate or prosecute any alcohol or drug abuse patient.[facility] HospitalIn the event this information is protected by the Federal Confidentiality of Alcohol and Drug Abuse Patient Records regulations: The Federal rules restrict any use of the information to criminally investigate or prosecute any alcohol or drug abuse patient.[facility] HospitalIn the event this information is protected by the Federal Confidentiality of Alcohol and Drug Abuse Patient Records regulations: The Federal rules restrict any use of the information to criminally investigate or prosecute any alcohol or drug abuse patient.[facility] HospitalIn the event this information is protected by the Federal Confidentiality of Alcohol and Drug Abuse Patient Records regulations: The Federal rules restrict any use of the information to criminally investigate or prosecute any alcohol or drug abuse patient.[facility] HospitalIn the event this information is protected by the Federal Confidentiality of Alcohol and Drug Abuse Patient Records regulations: The Federal rules restrict any use of the information to criminally investigate or prosecute any alcohol or drug abuse patient.[facility] Reason for Visit (unrecogniz ed section and content) Reason Comments Refill Request Reason Comments Vaginal Problem Reason Comments Sore Throat pain rated 7, x2 day s nasal congestion Reason Onset Date Comments Discussion Immunizations 03/12/2022 Flu vaccination Reason Comments Results Reason Comments Results Reason Comments Well Woman Reason Comments Discussion Would like to discus s getting dogs registered as ADILENE's Reason Onset Date Comments Refill Request 07/07/2022 Reason Onset Date Comments Refill Request 07/23/2022 Reason Onset Date Comments Refill Request 07/19/2022 Reason Comments Yearly Exam Reason Comments Acute Visit Would like medicatio n for acne; using otc acne treatments Reason Onset Date Comments Refill Request 09/20/2022 Reason Onset Date Comments Refill Request 11/28/2022 Reason Onset Date Comments Refill Request 12/02/2022 Reason Comments Follow Up ADILENE form Reason Comments bh consult Reason Onset Date Comments Refill Request 01/23/2023 Reason Comments Athlete Foot X 4 days Reason Comments Follow up from starting Prozac Reason Onset Date Comments Refill Request 06/19/2023 Care Teams (unrecognized sec tion and content) Associate Director Of Biostatistics Relationship Specialty Start Date End Date Vladimir Humphrey MD [address] [place] [address] PCP - General Family Practice 06/01/16 Associate Director Of Biostatistics Relationship Specialty Start Date End Date Vladimir Humphrey MD [address] [place] [address] PCP - [facility] Practice 06/01/16 Associate Director Of Biostatistics Relationship Specialty Start Date End Date Vladimir Humphrey MD [address] [place] [address] PCP - General Family Practice 06/01/16 Associate Director Of Biostatistics Relationship Specialty Start Date End Date Vladimir Humphrey MD [address] [facility] [place] [address] PCP - General Family Practice 06/01/16 Associate Director Of Biostatistics Relationship Specialty [place] [address] [place] [id number] PCP - General Family Practice 06/01/16 Associate Director Of Biostatistics Relationship Specialty Start Date End Date Vladimir Humphrey MD [address] [place] [address] PCP - General Family Practice 06/01/16 Associate Director Of Biostatistics Relationship Specialty Start Date End Date Vladimir Humphrey MD [address] [place] [address] PCP - General Family Medicine 06/01/16 Associate Director Of Biostatistics Relationship Specialty Start Date End Date Vladimir Humphrey MD [facility] [place] [address] PCP - General Family Medicine 06/01/16 Associate Director Of Biostatistics Relationship Specialty Start Date End Date Vladimir Humphrey MD [facility] [place] [address] PCP - General Family Medicine 06/01/16 Associate Director Of Biostatistics Relationship Specialty Start Date End Date Vladimir Humphrey MD [address] [place] [address], [place] [address] PCP - General Family Medicine 06/01/16 Associate Director Of Biostatistics Relationship Specialty Start Date End Date Vladimir Humphrey MD [facility] [place] [address] PCP - General Family Medicine 06/01/16 Associate Director Of Biostatistics Relationship Specialty Start Date End Date Vladimir Humphrey MD [facility] [place] [address] PCP - General Family Medicine 06/01/16 Associate Director Of Biostatistics Relationship Specialty Start Date End Date Vladimir Humphrey MD [facility] [place] [address] PCP - General Family Medicine 06/01/16 Associate Director Of Biostatistics Relationship Specialty Start Date End Date Vladimir Humphrey MD [facility] [place] [address] PCP - General Family Medicine 06/01/16 Associate Director Of Biostatistics Relationship Specialty Start Date End Date Vladimir Humphrey MD [address] [place] [address] PCP - General Family Medicine 06/01/16 Associate Director Of Biostatistics Relationship Specialty Start Date End Date Vladimir Humphrey MD [address] [place] [address] PCP - General Family Medicine 06/01/16 Associate Director Of Biostatistics Relationship Specialty Start Date End Date Vladimir Humphrey MD [address] [place] [address] PCP - General Family Medicine 06/01/16 Associate Director Of Biostatistics Relationship Specialty Start Date End Date Vladimir Humphrey MD [address] [place] [address] PCP - General Family Medicine 06/01/16 Associate Director Of Biostatistics Relationship Specialty Start Date End Date Vladimir Humphrey MD [address] [place] [address] PCP - General Family Medicine 06/01/16 Associate Director Of Biostatistics Relationship Specialty Start Date End Date Vladimir Humphrey MD [address] [place] [address] PCP - General Family Medicine 06/01/16 Associate Director Of Biostatistics Relationship Specialty Start Date End Date Vladimir Humphrey MD [address] [place] [address] PCP - General Family Medicine 06/01/16 Associate Director Of Biostatistics Relationship Specialty Start Date End Date Vladimir Humphrey MD [address] [place] [address] PCP - General Family Medicine 06/01/16 Associate Director Of Biostatistics Relationship Specialty Start Date End Date Vladimir Humphrey MD [address] [place] [address] PCP - General Family Medicine 06/01/16 Associate Director Of Biostatistics Relationship Specialty Start Date End Date Vladimir Humphrey MD [address] [place] [address] PCP - General [facility] Medicine 06/01/16 Associate Director Of Biostatistics Relationship Specialty Start Date End Date Vladimir Humphrey MD [address] [place], [place] [address] PCP - General Family Medicine 06/01/16 FOR RECORDS PERTAINING TO PATIENTS WHO ARE OR HAVE BEEN ENROLLED IN A CHEMICAL DEPENDENCY/SUBSTANCEABUSE PROGRAM, SOME INFORMATION MAY BE OMITTED. This clinical summary was aggregated from multiple sources. Caution should be exercised in using it in the provision of clinical care. This summary normalizes information from multiple sources, and as a consequence, information in this document may materially change the coding, format and clinical context of patient data. In addition, data may be omitted in some cases. CLINICAL DECISIONS SHOULD BE BASED ON THE PRIMARY CLINICAL RECORDS. [employer] provides no warranty or guarantee of the accuracy or completeness of information in this document.
[2023-06-23 10:28] LABS: Color, Urine Brown (Yellow); Glucose, Dipstick Normal (Normal); Ketone-Dipstick 15 mg/dl (Negative); Leukocyte Esterase-Dipstick 500 /ul (Negative); Nitrite-Dipstick Positive (Negative); Occult Blood-Urine 150 /ul (Negative); Protein-Dipstick 100 mg/dl (Negative); Specific Gravity, Urine 1.015 (1.002-1.030); Urine Clarity Sl. Cloudy (Clear); Urine Urobilinogen 8 mg/dl (Normal)
[2023-06-23 10:29] LABS: Urine Bilirubin Dipstick 6 mg/dL (Negative)
[2023-06-23 10:35] LABS: Bacteria 2+ /hpf (None Seen); Squamous Epithelial Cells - UA 0-5 SEEN /hpf (5-10)
[2023-06-23 10:36] LABS: Mucous, Urine 2+ /hpf (<or=2+); Red Blood Cells-Urine 10-25 SEEN /hpf (0-5); White Blood Cells 25-50 SEEN /hpf (0-5)
== END | disposition home or self-care (01) ==
LOC: LABSPEC 07:53
PROVIDERS: PCP Family Medicine; Visit Provider Physician Assistant Surgical
DX: N39.0 Urinary tract infection, site not specified (principal)
CPT/HCPCS: 81001

== ENCOUNTER → 2024-02-16 | Outpatient (CLI) | payer MEDICAID, SELFPAY ==
--- NOTE | 2024-02-16 17:22 | RAD_ITS ---
INDICATION: FB under fingernail EXAMINATION/TECHNIQUE: X-RAY - RIGHT HAND XR Fingers Min 2 Views COMPARISON: None. FINDINGS: No acute fracture or malalignment. No blastic or lytic lesions. No degenerative changes are seen. There are 2 tiny sliver-like radiopaque densities projecting over the nailbed of the third digit, measuring 0.8 and 0.6 mm, respectively. RAD/Finger(s) Min 2 Views IMPRESSION: Two tiny sliver-like radiopaque densities projecting over the nailbed of the third digit, measuring 0.8 and 0.6 mm, respectively. Electronically Signed: Bhavik Lucio MD at 17:49 EDT ,
== END | disposition home or self-care (01) ==
PROVIDERS: PCP Family Medicine; Referring Provider Physician Assistant Surgical; Visit Provider Physician Assistant Surgical
DX: S60.452A Superficial foreign body of right middle finger, initial encounter (principal)
CPT/HCPCS: 73140